=== PATIENT | male | born 1940 | race Caucasian/White ===

== ENCOUNTER → 2018-01-26 | Outpatient (CLI) | payer MEDICARE ==
[2018-01-26 16:36] LABS: Appearance,Urine Clear (Clear); Bilirubin,Urine Negative (Negative); Blood,Urine Negative (Negative); Color,Urine Light Yellow; Glucose,Urine (UA) Negative (Negative); Ketones,Urine Negative (Negative); Leukocyte Esterase,Urine Negative (Negative); Nitrite,Urine Negative (Negative); PH, Urine 6.5 (5.0-8.0); Protein,Urine Negative (Negative); Specific Gravity,Urine 1.008 (1.001-1.035); Urobilinogen,Urine <2.0 mg/dL (<2.0)
[2018-01-26 16:39] LABS: HCT 41.7 % (39.0-53.0); HGB 14.2 gm/dL (13.0-17.5); MCH 30.7 pg (25.0-35.0); MCV 90.3 fL (80.0-100.0); Mean Platelet Volume 6.4; Platelet Count 236 k/uL (150-450); RBC 4.61 m/uL (4.30-5.90); RDW 13.1 % (11.5-15.5); WBC 6.5 k/uL (3.8-10.6)
[2018-01-26 16:41] LABS: Calcium 9.7 mg/dL (8.4-10.2); Potassium 4.4 mmol/L (3.5-5.1)
[2018-01-26 16:44] LABS: Creatinine,Urine Random 59.8 mg/dL
== END | disposition home or self-care (01) ==
LOC: LABWHC1 15:55
PROVIDERS: ATTEND Nurse Practitioner Family
DX: N39.0 Urinary tract infection, site not specified (principal); R80.9 Proteinuria, unspecified; N18.3 Chronic kidney disease, stage 3 (moderate); D63.1 Anemia in chronic kidney disease
CPT/HCPCS: 36415; 80048; 81003; 82570; 84156; 85027

== ENCOUNTER → 2021-08-17 | Outpatient (CLI) | payer MEDICARE ==
--- NOTE | 2021-08-17 12:31 | XR ---
EXAMINATION TYPE: XR chest 2V DATE OF EXAM: 08/17/2021 COMPARISON: Chest x-ray January 15, 2016 HISTORY: History of open heart surgery with cough and congestion. TECHNIQUE: Frontal and lateral views of the chest are obtained. FINDINGS: Overlying sternal wires and mediastinal clips redemonstrated. There is no suspicious new f ocal air space opacity, pleural effusion, or pneumothorax seen. Chronic emphysematous changes are tho ught present on lateral view. The cardiac silhouette size is stable and within normal limits. The osseous structures are intact. IMPRESSION: Chronic changes without acute pulmonary process.
== END | disposition home or self-care (01) ==
LOC: RADXRMAIN 12:04
PROVIDERS: ATTEND Internal Medicine
DX: R05.9 Cough, unspecified (principal); R09.89 Other specified symptoms and signs involving the circulatory and respiratory systems; Z98.890 Other specified postprocedural states
CPT/HCPCS: 71046

== ENCOUNTER → 2021-10-25 | Outpatient (CLI) | payer MEDICARE | END | disposition home or self-care (01) | LOC: LABPAT 15:15 | PROVIDERS: ATTEND Orthopaedic Surgery | DX: Z01.812 Encounter for preprocedural laboratory examination (principal); Z22.322 Carrier or suspected carrier of Methicillin resistant Staphylococcus aureus; M17.11 Unilateral primary osteoarthritis, right knee | CPT/HCPCS: 87070 ==

== ENCOUNTER 2021-11-13 08:25 | Day surgery (SDC) | payer MEDICARE ==
[2021-11-08 15:10] VITALS: BMI 28.1
--- NOTE | 2021-11-12 09:22 | HP ---
HISTORY AND PHYSICAL CHIEF COMPLAINT: Right knee pain. HISTORY OF PRESENT ILLNESS: The patient is a 81-year-old retired gentleman who presents with progressive right knee pain for the past several years. He notes swelling and stiffness. He has pain with weightbearing activities. He intermittently limps. He has tried medications for this in the past without much relief. PAST MEDICAL HISTORY: Significant for hyperlipidemia, hypertension, hypothyroidism, prostate cancer, coronary artery disease and osteoarthrosis. PAST SURGICAL HISTORY: Significant for left knee arthroscopy, left total knee arthroplasty, right knee arthroscopy, prostate surgery and coronary artery bypass grafting. CURRENT MEDICATIONS: Aspirin, Synthroid, Cozaar, Crestor, and Toprol. ALLERGIES: HE DENIES DRUG ALLERGIES. FAMILY HISTORY: Significant for heart disease and cancer. SOCIAL HISTORY: Negative for current tobacco or significant alcohol use. REVIEW OF SYSTEMS: Sixteen-point review of systems otherwise reviewed and is noncontributory. PHYSICAL EXAMINATION: On examination, the patient is approximately 5 feet 7 inches, 180 pounds of mesomorphic habitus. HEENT exam is nonfocal. Neck is supple. He has painless passive motion of the right hip. Straight-leg raise is negative. Active motion of right knee: Minus 10 to 120 degrees of flexion. He has a trace effusion. He is tender about the medial and lateral joint lines. Collaterals are stable, Dilip is negative. Isaias's is equivocal. He has genu varum alignment. His distal neurovascular exam appears intact in the right lower extremity. Weightbearing notch, lateral and Merchant views of the right knee obtained in the office show severe medial compartment and patellofemoral compartment osteoarthrosis with [id number] changes and subchondral sclerosis. IMPRESSION: Right knee severe medial and patellofemoral compartment osteoarthrosis. RECOMMENDATIONS: I talked to the patient at length regarding his condition along with treatment options. At this point he is quite symptomatic and limited because of pain related to his osteoarthrosis despite previous conservative measures. After thorough discussion, he opts to proceed with surgery. We will plan to proceed with right total knee arthroplasty. We will institute DVT prophylaxis postoperatively. Risks and benefits were discussed at length in layman's terms. MMODL / IJN: [id number] /
[~2021-11-13 08:25] MED LIST: ACETAMINOPHEN TAB 500 MG TAB PO PRN; LACTATED RINGERS 1,000 ML IV SCH; LIDOCAINE 1% (10MG/ML) FOR IV START INTRADERMA PRN; MELOXICAM 7.5 MG TAB PO PRN; ONDANSETRON 4 MG/2 ML VIAL IVP ONE; TRANEXAMIC ACID IN NACL,ISO-OS 1,000 MG in SALINE 1 100ML.BAG IVPB PRN
[2021-11-13] MEDS ORDERED: MIDAZOLAM 2 MG/2 ML VIAL IVP ONE (09:42)
[2021-11-13] MEDS ORDERED: fentaNYL (PF) 50 MCG/ML 2 ML AMP IVP ONE (09:44)
--- NOTE | 2021-11-13 10:22 | P.ANPRN ---
Procedure Note - Anesthesia - Nerve Block Performed Right Adductor Canal Infusion Time Out Performed: Yes (942) Date of Procedure: 11/13/21 Procedure Start Time: 09:43 Procedure Stop Time: 09:48 Location of Patient: PreOp Indication: Acute Post-Operative Pain, Requested by Surgeon Specifically requested for management of pain by : Austin Owusu Sedation Type: Sedate with meaningful contact maintained Preparation: Sterile Prep, Sterile Dressing Position: Supine Catheter Depth at Skin (cm): 8 Catheter: Indwelling Needle Types: Pajunk Needle Gauge: 18 Ultrasound used to visualize needle placement: Yes Ultrasound used to observe medication spread: Yes Injectate: 0.5% Ropivacaine (see comment for volume) (15cc + 5cc nacl pf) Blood Aspirated: No Pain Paresthesia on Injection Noted: No Resistance on Injection: Normal Image Stored and Saved: Yes Events: Uneventful and Well Tolerated
--- NOTE | 2021-11-13 10:23 | P.ANPRN ---
Procedure Note - Anesthesia - Nerve Block Performed Right iPack Single Time Out Performed: Yes (942) Date of Procedure: 11/13/21 Procedure Start Time: 09:49 Procedure Stop Time: 09:52 Location of Patient: PreOp Indication: Acute Post-Operative Pain, Requested by Surgeon Specifically requested for management of pain by DrLeonides: Austin Owusu Sedation Type: Sedate with meaningful contact maintained Preparation: Sterile Prep Position: Supine Catheter: None Needle Types: Pajunk Needle Gauge: 21 Ultrasound used to visualize needle placement: Yes Ultrasound used to observe medication spread: Yes Injectate: 0.5% Ropivacaine (see comment for volume) (15cc + 5cc nacl) Blood Aspirated: No Pain Paresthesia on Injection Noted: No Resistance on Injection: Normal Image Stored and Saved: Yes Events: Uneventful and Well Tolerated
[2021-11-13] MEDS ORDERED: PROPOFOL 10 MG/ML 20 ML VIAL IV ONE (10:25)
[2021-11-13] MEDS ORDERED: fentaNYL (PF) 50 MCG/ML 2 ML AMP ONE (10:25)
[2021-11-13] MEDS ORDERED: ePHEDrine 50 MG/ML 1 ML VIAL ONE (10:25)
[2021-11-13] MEDS ORDERED: SUCCINYLCHOLINE CHLORIDE 100 MG/5 ML SYR IV ONE (10:25)
[2021-11-13] MEDS ORDERED: LIDOCAINE 1% INJ 10MG/ML (20 ML MDV) ONE (10:25)
[2021-11-13] MEDS ORDERED: TRANEXAMIC ACID IN NACL,ISO-OS 1,000 MG/100 ML BAG ONE (10:25)
[2021-11-13] MEDS ORDERED: SODIUM CHLORIDE 0.9% (PF) 10 ML VIAL ONE (10:25)
[2021-11-13] MEDS ORDERED: ROPIVACAINE 5 MG/ML 30 ML VIAL ONE (10:25)
[2021-11-13] MEDS ORDERED: ceFAZolin 1,000 MG in SODIUM CHLORIDE 0.9% 1,000 ML IRRIGATION ONE (11:01)
[2021-11-13] MEDS ORDERED: LACTATED RINGERS 1,000 ML IV ONE (11:47)
[2021-11-13] MEDS ORDERED: NALOXONE 0.4 MG/ML 1 ML VIAL IV PRN (11:58)
[2021-11-13] MEDS ORDERED: HYDROcodone/APAP 5-325MG 1 EACH TAB PO PRN (11:58)
[2021-11-13] MEDS ORDERED: HYDROcodone/APAP 7.5-325MG 1 EACH TAB PO PRN (11:58)
[2021-11-13] MEDS ORDERED: HYDROmorphone 0.5 MG/0.5 ML SYRINGE IVP PRN (11:58)
--- NOTE | 2021-11-13 12:20 | P.OP ---
Date of Procedure: 11/13/21 Preoperative Diagnosis: Right knee severe tricompartmental osteoarthrosis Postoperative Diagnosis: Same Procedure(s) Performed: Right total knee arthroplastycementedcruciate retaining Implants: Depuy Attune size 6 cemented femoral component, size 6 cemented tibial component, 10 mm articular surface, 38 mm cemented patellar component. This is a cruciate retaining implant. Anesthesia: [facility] Surgeon: Austin Owusu Graphic Arts Technician #1: Andrey Gibbs Graphic Arts Technician #2: Shoaib Dewey Estimated Blood Loss (ml): 50 Pathology: other (Bone fragments) Condition: stable Disposition: PACU Indications for Procedure: Patient 81-year-old male who presents with progressive right knee pain secondary to osteoarthrosis by conservative measures. A discussion of the risks and benefits of operative intervention versus continued conservative measures made with patient. He opted to proceed with surgery. Operative risks to include infection, neurovascular injury, development of blood clots, component loosening /failure and possible need for subsequent procedures was discussed. Informed consent was obtained. Operative Findings: As below Description of Procedure: The patient was brought to the operating room, and after induction of spinal anesthesia the right lower extremity was prepped and draped in a normal fashion. The tourniquet was inflated to 270 mmHg. A longitudinal incision extending 3 finger breaths above the superior pole of the patella extending to the medial aspect the tibial tubercle was then made. The skin and subcutaneous tissues were divided sharply. Electrocautery was used for hemostasis. A medial parapatellar arthrotomy was then performed. The medial soft tissues to include the superficial and deep portions of the medial collateral ligament as well as the medial hamstring tendons were elevated subperiosteally. The proximal medial tibia osteophytes were carefully removed. The patella was everted. The knee was flexed. A portion of the retropatellar fat pad was excised sharply. The anterior cruciate ligament was sacrificed. A starting hole was made in the distal femur 1 cm anterior to the posterior cruciate origin. An intramedullary femoral guide was gently inserted planning on 5 valgus distal cut with 9 mm distal resection. The cutting block was pinned in place. The distal cut was then made. The posterior referencing sizing guide was utilized. 3 of external rotation was built into the system and verified off the trans- epicondylar axis and the posterior condyles. I felt size 6 was most appropriate. The cutting block was pinned in place. The anterior, posterior, and chamfer cuts were then made. The bone fragments were removed. A sulcus cut was then made with the appropriate guide. The trial size 6 femoral component was then placed and was fully seated. There was good anterior to posterior and medial to lateral fit. The distal peg holes were then drilled. The trial component was then removed. Attention was then paid towards preparing the proximal tibia. An extra medullary guide was utilized in line with the tibial shaft and second metatarsal distally. A 7 posterior slope was planned. I planned on 2 mm resection from the medial compartment. The cutting block was pinned in place. The proximal tibial cut was then made. The bone was removed in one fragment. The remnants of the medial and lateral menisci were excised the capsule junction with electrocautery. The tibia sized most appropriately at size 6. The posterior osteophytes off the distal femur were carefully removed with a curved osteotome. The trial tibial and femoral components were placed along with a 10 millimeters articular surface. I was able to obtain full flexion and extension with good stability with varus and valgus stress. After several flexion and extension cycles, the tibial rotation was marked with electrocautery in line with the medial one third of the tibial tubercle. At tention was then paid towards preparing the patella. A patella reamer was utilized taking this down to 14 mm of bone stock. A good flush cut was made. The patella sized most appropriately at 38 millimeters. The peg holes were then drilled. The trial component was placed. The knee was taken through a range of motion. I had good patellofemoral tracking with no hands technique. The trial components were then removed. The tibia was prepared in the appropriate rotation with appropriate drill and keel punch. The flexion and extension gaps were checked and felt to be symmetric. The bony surfaces were prepared with pulsatile lavage and dried. The tibial component was then cemented in place and was fully seated. Excess cement was removed. The femoral component was cemented in place and was fully seated. Again excess cement was removed. The trial 10 millimeters surface was then inserted in the knee was put in full extension. The patella component was cemented in place. After the cement had sufficiently hardened, the knee was again taken through a range of motion. Again there was good stability in flexion and extension with varus and valgus stress. The trial articular surface was then removed. The final articular surface was placed and was impacted. Care was taken to avoid any soft tissue interposition. Pulsatile lavage was again utilized. The tourniquet was def lated with approximately 60 minutes total tourniquet time. There was minimal drainage therefore a deep drain was not placed. The medial parapatellar arthrotomy was then closed with #2 Ethibond suture. The subcutaneous tissues were reapproximated interrupted 2-0 Vicryl sutures. The skin was reapproximated with 3-0 subarticular strata fix suture. Skin tape and adhesive was applied. A sterile dressing was applied. The patient was then awoken from sedation and transferred to recovery room in good condition. Blood loss was estimated at 50 milliliters. No complications were incurred. Sponge and needle counts were correct at the end the case. Gurinder SIDDIQI/Andrey SIDDIQI assisted during the major components this case to include exposure, bone resection, and implantation.
[2021-11-13 12:24] VITALS: TEMP 97
[2021-11-13] MEDS ORDERED: ROPIVACAINE 0.2%-NS ON-Q PUMP 1,090 MG, EMPTY PAIN BALL 1 EACH MISCELLANE PRN (12:29)
[2021-11-13] MEDS: HYDROmorphone 0.5 MG/0.5 ML SYRINGE IVP PRN ×2 (12:35→13:05)
--- NOTE | 2021-11-13 12:44 | XR ---
EXAMINATION TYPE: XR knee limited RT DATE OF EXAM: 11/13/2021 CLINICAL HISTORY: Right knee pain and arthritis status post total knee replacement. TECHNIQUE: Portable AP and crosstable lateral views of the right knee are obtained immediately posto peratively. COMPARISON: None FINDINGS: Metallic hardware from total right knee arthroplasty is seen and appears satisfactory in a lignment and position. There is evidence of recent surgery with diffuse subcutaneous gas and soft ti ssue swelling noted. Surgical clips from venous harvesting procedure are noted posterior medial aspec t. IMPRESSION: METALLIC HARDWARE FROM TOTAL RIGHT KNEE ARTHROPLASTY IS SATISFACTORY IN ALIGNMENT.
[2021-11-13] MEDS ORDERED: KETOROLAC 15 MG/ML 1 ML VIAL IVP ONE (13:05)
[2021-11-13] MEDS ORDERED: HYDROcodone/APAP 5-325MG 1 EACH TAB PO ONE (14:17)
[2021-11-13 14:59] VITALS: BP 133/75; PULSE 53; RESP 18
== END 2021-11-13 16:20 | disposition home health service (06) ==
LOC: OR 08:25 → 4SSUR 12:14 → OR 16:20
PROVIDERS: ATTEND Orthopaedic Surgery
DX: M17.11 Unilateral primary osteoarthritis, right knee (principal); E78.5 Hyperlipidemia, unspecified; I10 Essential (primary) hypertension; E03.9 Hypothyroidism, unspecified; I25.10 Atherosclerotic heart disease of native coronary artery without angina pectoris; Z85.46 Personal history of malignant neoplasm of prostate; Z96.652 Presence of left artificial knee joint; Z95.1 Presence of aortocoronary bypass graft; E55.9 Vitamin D deficiency, unspecified; Z98.890 Other specified postprocedural states; Z81.0 Family history of intellectual disabilities; F41.9 Anxiety disorder, unspecified; N40.0 Benign prostatic hyperplasia without lower urinary tract symptoms; I12.9 Hypertensive chronic kidney disease with stage 1 through stage 4 chronic kidney disease, or unspecified chronic kidney disease; N18.30 Chronic kidney disease, stage 3 unspecified; I25.2 Old myocardial infarction; Z87.891 Personal history of nicotine dependence; Z98.49 Cataract extraction status, unspecified eye; Z90.79 Acquired absence of other genital organ(s); Z95.5 Presence of coronary angioplasty implant and graft; Z79.82 Long term (current) use of aspirin; Z79.890 Hormone replacement therapy; Z79.899 Other long term (current) drug therapy
CPT/HCPCS: 97110; 97161; 64999; 64448; 76942; 88305; 88311; 73560; 27447; C1713 ×2; C1776; J2250; J0690 ×2; J2405; J2001; J3010; J2795 ×2; J1885; J0330; J2704; J1170

== ENCOUNTER → 2023-02-18 | Outpatient (CLI) | payer MEDICARE ==
--- NOTE | 2023-02-18 20:57 | MR ---
MRI CERVICAL SPINE: CLINICAL HISTORY: Neck pain for 6 months spondylosis without myelopathy or radiculopathy. TECHNIQUE: Multiplanar, multisequence imaging of the cervical spine is performed without IV contrast. COMPARISON: None. FINDINGS: Coronal images show levoconvex scoliosis centered in the upper thoracic spine Sagittal imag es of the cervical spine show the craniocervical junction to appear within normal limits. The cervic al and upper thoracic spinal cord is normal in caliber and signal. Alignment satisfactory and sagitta l images. The vertebral body heights are normal. There is marked disc space narrowing with some ossi fic fusion involving the C3-C4 and C4-C5 vertebra. Mild to moderate disc space narrowing and anterior spurring C5-C6 level. Moderate disc space narrowing and spurring with heterogeneous Modic type II en dplate changes at C6-C7 level. Marked disc space narrowing at T1-T2 level. Tiny posterior disc hernia tions efface the anterior thecal sac at T2-T3 and T3-T4 levels sagittal image 9. Axial images at C2-C3 level show uncovertebral facet degenerative changes causing mild to moderate le ft greater than right bilateral neural foraminal narrowing. Axial images at C3-C4 level show uncovertebral facet degenerative changes bilaterally causing mild ri ght-sided neural foraminal narrowing. Axial images at C4-C5 levels show posterior bony projection effacing the anterior thecal sac nearly u p to ventral surface of spinal cord and causing mild bilateral neural foraminal narrowing. Axial images at C5-C6 levels show broad-based posterior disc protrusion with right paracentral/forami nal component effacing the anterior thecal sac and causing asymmetric mild to moderate right-sided ne ural foraminal narrowing. Axial images at C6-C7 levels with broad-based posterior disc protrusion effacing anterior thecal sac, patent bilateral neural foramina. Axial images at C7-T1 level appear within normal limits. IMPRESSION: Scoliosis with multilevel degenerative changes in the cervical spine as detailed above.
== END | disposition home or self-care (01) ==
LOC: RADMRIMAIN 12:30
PROVIDERS: ATTEND Orthopaedic Surgery
DX: M47.812 Spondylosis without myelopathy or radiculopathy, cervical region (principal); M50.321 Other cervical disc degeneration at C4-C5 level; M99.71 Connective tissue and disc stenosis of intervertebral foramina of cervical region
CPT/HCPCS: 72141

== ENCOUNTER 2023-07-25 15:38 | Inpatient (IN) | payer MEDICARE ==
--- NOTE | 2023-07-25 16:16 | ED ---
General Adult HPI - General Source: patient, family, RN notes reviewed Mode of arrival: ambulatory Limitations: no limitations <Myranda Neves - Last Filed: 07/25/23 16:15> <Oscar Hall - Last Filed: 08/11/23 05:37> - General Chief complaint: Shortness of Breath Stated complaint: Abn EKG,SOB/sent by pcp - History of Present Illness Initial comments: Patient is an 83-year-old male presenting to the ER with chief complaint shortness of breath. Patient was seen and office by Dr. saucedo and was found to be in atrial flutter. Patient follows up Dr. Montalvo. Patient denies any current chest pain/palpitations does endorse shortness of breath. (Myranda Neves) - Related Data Home Medications Medication Instructions Recorded Confirmed Levothyroxine Sodium [Synthroid] 125 mcg PO DAILY 07/11/14 07/25/23 Losartan [Cozaar] 25 mg PO DAILY 01/08/16 07/25/23 Cholecalciferol [Vitamin D3 (25 50 mcg PO DAILY 07/10/16 07/25/23 Mcg = 1000 Iu)] Aspirin [Adult Low Dose Aspirin EC] 81 mg PO DAILY 08/20/16 07/25/23 Multivitamins, Thera [Multivitamin 1 tab PO DAILY 11/08/21 07/25/23 (formulary)] Rosuvastatin Calcium [Crestor] 40 mg PO DAILY 11/08/21 07/25/23 Cyclobenzaprine [Flexeril] 5 mg PO TID PRN 07/25/23 07/25/23 Esomeprazole Magnesium [NexIUM 20 mg PO DAILY 07/25/23 07/25/23 24Hr] Zolpidem Tartrate [Ambien] 5 mg PO HS PRN 07/25/23 07/25/23 Previous Rx's Medication Instructions Recorded Apixaban [Eliquis] 5 mg PO BID 30 Days #60 tab 07/29/23 Allergies Allergy/AdvReac Type Severity Reaction Status Date / Time No Known Allergies Allergy Verified 07/25/23 22:38 Review of Systems ROS Other: All systems not noted in ROS Statement are negative. <Myranda Neves - Last Filed: 07/25/23 16:15> ROS Other: All systems not noted in ROS Statement are negative. Constitutional: Reports: weakness. Denies: fever, chills Respiratory: Reports: dyspnea. Denies: cough, wheezes Cardiovascular: Denies: chest pain, palpitations, edema, syncope Gastrointestinal: Denies: abdominal pain, vomiting, diarrhea Genitourinary: Denies: dysuria, hematuria Musculoskeletal: Denies: back pain Skin: Denies: rash Neurological: Denies: headache, weakness, numbness <RobertclydeOscar - Last Filed: 08/11/23 05:37> ROS Statement: Those systems with pertinent positive or pertinent negative responses have been documented in the HPI. Past Medical History Past Medical History: Cancer, CVA/TIA, Hyperlipidemia, Myocardial Infarction ([place]), Prostate Disorder, Syncope, Thyroid Disorder Additional Past Medical History / Comment(s): PROSTATE CANCER, TIA/SYNCOPY, STATES NO RESIDUAL EFFECTS FROM TIA Last Myocardial Infarction Date:: 2004 History of Any Multi-Drug Resistant Organisms: None Reported Past Surgical History: Coronary Bypass/CABG, Heart Catheterization With Stent Additional Past Surgical History / Comment(s): TOTAL LEFT KNEE, RIGHT and left KNEE ARTHROSCOPIC, LEFT and right CATARACT, QUAD BYPASS 2004 Past Anesthesia/Blood Transfusion Reactions: Previous Problems w/ Anesthesia Additional Past Anesthesia/Blood Transfusion Reaction / Comment(s): TROUBLE EATING AND DIARRHEA POST SURGICAL 06/2016, STATES WEIGHT LOSS Date of Last Stent Placement:: 2004 Past Psychological History: Anxiety Past Alcohol Use History: Occasional - Past Family History Daughter(s) Family Medical History: Cancer Additional Family Medical History / Comment(s): Melanoma. Mother Family Medical History: Cancer <Myranda Neves - Last Filed: 07/25/23 16:15> General Exam Limitations: no limitations <Myranda Neves - Last Filed: 07/25/23 16:15> Limitations: no limitations General appearance: alert, in no apparent distress Head exam: Present: atraumatic, normocephalic Eye exam: Present: normal appearance ENT exam: Present: normal exam Neck exam: Present: normal inspection, full ROM Respiratory exam: Present: normal lung sounds bilaterally. Absent: respiratory distress, wheezes, rales, rhonchi, stridor, accessory muscle use Cardiovascular Exam: Present: bradycardia, irregular rhythm, normal heart sounds. Absent: systolic murmur, diastolic murmur, rubs, gallop GI/Abdominal exam: Present: soft. Absent: distended, tenderness, guarding, rebound, rigid, mass Extremities exam: Present: normal inspection, normal capillary refill. Absent: pedal edema, calf tenderness Back exam: Present: normal inspection. Absent: CVA tenderness (R), CVA tenderness (L) Neurological exam: Present: alert Skin exam: Present: warm, dry, intact, normal color. Absent: rash <Oscar Hall - Last Filed: 08/11/23 05:37> - General Exam Comments Initial Comments: Visual Physical Exam Vital signs reviewed General: Well-appearing, nontoxic, no acute distress. Head: Normocephalic, atraumatic Eyes: PERRLA, EOMI ENT: Airway patent Chest: Nonlabored breathing Skin: No visual rash, normal skin tone Neuro: Alert and oriented 3 Musculoskeletal: No gross abnormalities (Myranda Neves) Course Vital Signs 07/25/23 07/26/23 07/26/23 16:05 02:31 07:11 Temperature 98.1 F Pulse Rate 39 L 47 L 45 L Respiratory 20 19 18 Rate Blood Pressure 159/95 169/96 139/93 O2 Sat by Pulse 96 95 96 Oximetry 07/26/23 07/26/23 07/26/23 08:00 09:00 10:00 Temperature Pulse Rate 48 L 80 81 Respiratory 17 18 17 Rate Blood Pressure 139/93 139/93 139/93 O2 Sat by Pulse 96 96 96 Oximetry 07/26/23 07/26/23 07/26/23 11:00 12:03 14:30 Temperature 98.4 F 98.0 F Pulse Rate 47 L 43 L 48 L Respiratory 16 18 17 Rate Blood Pressure 131/71 154/78 143/74 O2 Sat by Pulse 100 97 96 Oximetry 07/26/23 07/26/23 07/26/23 17:45 19:22 19:58 Temperature 97.8 F 98.2 F Pulse Rate 47 L 51 L Respiratory 18 16 Rate Blood Pressure 170/87 160/83 O2 Sat by Pulse 95 97 Oximetry 07/26/23 07/27/23 07/27/23 21:04 00:27 04:36 Temperature Pulse Rate 49 L 53 L 48 L Respiratory 16 16 16 Rate Blood Pressure 126/81 147/85 O2 Sat by Pulse 96 97 95 Oximetry 07/27/23 07/27/23 07/27/23 05:00 08:57 11:42 Temperature 98.6 F Pulse Rate 60 61 Respiratory 18 18 Rate Blood Pressure 151/75 153/82 125/53 O2 Sat by Pulse 96 95 Oximetry 07/27/23 14:06 Temperature 98.2 F Pulse Rate 65 Respiratory 18 Rate Blood Pressure 137/81 O2 Sat by Pulse 94 L Oximetry Medical Decision Making <Myranda Neves - Last Filed: 07/25/23 16:15> - Lab Data Result diagrams: 07/29/23 09:39 07/29/23 09:39 <RobertOscar tang - Last Filed: 08/11/23 05:37> - Medical Decision Making I performed the quick note portion of the exam. Electronically signed by Myranda Neves PA-C (Myranda Neves) The patient had chest x-ray which I interpreted as negative for acute infiltrate, cardiomegaly, congestive heart failure Was pt. sent in by a medical professional or institution ([facility], [employer], urgent care, hospital, or fci...) When possible be specific @ -Yes the patient is sent here from primary physician's office for concerns about ECG change Did you speak to anyone other than the patient for history (EMS, parent, family, police, friend...)? What history was obtained from this source @ -[No] Did you review nursing and triage notes (agree or disagree)? Why? @ -[I reviewed and agree with nursing and triage notes] Were old charts reviewed (outside hosp., previous admission, EMS record, old EKG, old radiological studies, urgent care reports/EKG's, fci records)? Report findings @ -[No old charts were reviewed] Differential Diagnosis (chest pain, altered mental status, abdominal pain women, abdominal pain men, vaginal bleeding, weakness, fever, dyspnea, syncope, he adache, dizziness, GI bleed, back pain, seizure, CVA, palpatations, mental health, musculoskeletal)? @ - Differential Dyspnea: Coronary syndrome, arrhythmia, tamponade, asthma, COPD, pulmonary embolism, pneumonia, pneumothorax, pulmonary effusion, anaphylaxis, diabetic ketoacidosis, flailed chest, pulmonary contusion, diaphragmatic rupture, anemia, neuromuscular, this is not meant to be an all-inclusive list. EKG interpreted by me (3pts min.). @ -[I interpreted As above] X-rays interpreted by me (1pt min.). @ -[I interpreted as above CT interpreted by me (1pt min.). @ -[None done] U/S interpreted by me (1pt. min.). @ -[None done] What testing was considered but not performed or refused? (CT, X-rays, U/S, labs)? Why? @ -[None] What meds were considered but not given or refused? Why? @ -[None] Did you discuss the management of the patient with other professionals (professionals i.e. , PA, [employer] PL[employer]ER, lab, RT, psych nurse, hospital social worker, convex grinder operator, teacher, chief data officer, casework manager)? Give summary @ -[Case discussed with admitting physician and treatment recommendations incorporated Was smoking cessation discussed for >3mins.? @ -[No] Was critical care preformed (if so, how long)? @ -[No] Were there social determinants of health that impacted care today? How? (Homelessness, low income, unemployed, alcoholism, drug addiction, transportation, low edu. Level, literacy, decrease access to med. care, long term, r ehab)? @ -[No] Was there de-escalation of care discussed even if they declined (Discuss DNR or withdrawal of care, Hospice)? DNR status @ -[No] What co-morbidities impacted this encounter? (DM, HTN, Smoking, COPD, CAD, Cance r, CVA, ARF, Chemo, Hep., AIDS, mental health diagnosis, sleep apnea, morbid obesity)? @ -[None] Was patient admitted / discharged? Hospital course, mention meds given and route, prescriptions, significant lab abnormalities, going to OR and other pertinent info. @ -[The patient will be admitted to have serial cardiac enzymes, telemetry jeffrey toring, cardiology consultation Undiagnosed new problem with uncertain prognosis? @ -[No] Drug Therapy requiring intensive monitoring for toxicity (Heparin, Nitro, Insulin, Cardizem)? @ -[No] Were any procedures done? @ -[No] Diagnosis/symptom? @ -New-onset atrial flutter Acute, or Chronic, or Acute on Chronic? @ -[Acute Uncomplicated (without systemic symptoms) or Complicated (systemic symptoms)? @ -[Complicated by dyspnea and general weakness Side effects of treatment? @ -[No] Exacerbation, Progression, or Severe Exacerbation? @ -[No] Poses a threat to life or bodily function? How? (Chest pain, USA, DC, pneumonia, PE, COPD, DKA, ARF, appy, cholecystitis, CVA, Diverticulitis, Homicidal, Suicidal, threat to staff... and all critical care pts) @ -[No] (Oscar Hall) - Lab Data Lab Results 07/25/23 07/25/23 07/25/23 Range/Units 16:12 16:12 16:12 WBC 7.1 (3.8-10.6) k/uL RBC 4.30 (4.30-5.90) m/uL Hgb 14.0 (13.0-17.5) gm/dL Hct 40.0 (39.0-53.0) % MCV 92.8 (80.0-100.0) fL MCH 32.5 (25.0-35.0) pg MCHC 35.0 (31.0-37.0) g/dL RDW 12.8 (11.5-15.5) % Plt Count 198 (150-450) k/uL MPV 7.4 Neutrophils % (Manual) 60 % Lymphocytes % (Manual) 26 % Monocytes % (Manual) 13 % Eosinophils % (Manual) 2 % Basophils % (Manual) 1 % Neutrophils # (Manual) 4.26 (1.3-7.7) k/uL Lymphocytes # (Manual) 1.85 (1.0-4.8) k/uL Monocytes # (Manual) 0.92 (0-1.0) k/uL Eosinophils # (Manual) 0.14 (0-0.7) k/uL Basophils # (Manual) 0.07 (0-0.2) k/uL Nucleated RBCs 0 (0-0) /100 WBC Manual Slide Review Performed RBC Morphology Normal PT 11.2 (10.0-12.5) sec INR 1.0 (<1.2) APTT 24.9 (22.0-30.0) sec Sodium 138 (137-145) mmol/L Potassium 4.4 (3.5-5.1) mmol/L Chloride 103 (98-107) mmol/L Carbon Dioxide 24 (22-30) mmol/L Anion Gap 11 mmol/L BUN 29 H (9-20) mg/dL Creatinine 1.17 (0.66-1.25) mg/dL Est GFR (CKD-EPI)AfAm 67 (>60 ml/min/1.73 sqM) Est GFR (CKD-EPI)NonAf 58 (>60 ml/min/1.73 sqM) Glucose 90 (74-99) mg/dL Calcium 9.6 (8.4-10.2) mg/dL Total Bilirubin 0.7 (0.2-1.3) mg/dL AST 98 H (17-59) U/L ALT 96 H (4-49) U/L Alkaline Phosphatase 87 (38-126) U/L Troponin I (0.000-0.034) ng/mL NT-Pro-B Natriuret Pep pg/mL Total Protein 7.7 (6.3-8.2) g/dL Albumin 4.6 (3.5-5.0) g/dL 07/25/23 07/25/23 07/25/23 Range/Units 16:12 22:33 22:33 WBC (3.8-10.6) k/uL RBC (4.30-5.90) m/uL Hgb (13.0-17.5) gm/dL Hct (39.0-53.0) % MCV (80.0-100.0) fL MCH (25.0-35.0) pg MCHC (31.0-37.0) g/dL RDW (11.5-15.5) % Plt Count (150-450) k/uL MPV Neutrophils % (Manual) % Lymphocytes % (Manual) % Monocytes % (Manual) % Eosinophils % (Manual) % Basophils % (Manual) % Neutrophils # (Manual) (1.3-7.7) k/uL Lymphocytes # (Manual) (1.0-4.8) k/uL Monocytes # (Manual) (0-1.0) k/uL Eosinophils # (Manual) (0-0.7) k/uL Basophils # (Manual) (0-0.2) k/uL Nucleated RBCs (0-0) /100 WBC Manual Slide Review RBC Morphology PT (10.0-12.5) sec INR (<1.2) APTT (22.0-30.0) sec Sodium (137-145) mmol/L Potassium (3.5-5.1) mmol/L Chloride (98-107) mmol/L Carbon Dioxide (22-30) mmol/L Anion Gap mmol/L BUN (9-20) mg/dL Creatinine (0.66-1.25) mg/dL Est GFR (CKD-EPI)AfAm (>60 ml/min/1.73 sqM) Est GFR (CKD-EPI)NonAf (>60 ml/min/1.73 sqM) Glucose (74-99) mg/dL Calcium (8.4-10.2) mg/dL Total Bilirubin (0.2-1.3) mg/dL AST (17-59) U/L ALT (4-49) U/L Alkaline Phosphatase (38-126) U/L Troponin I 0.028 0.016 (0.000-0.034) ng/mL NT-Pro-B Natriuret Pep 4350 pg/mL Total Protein (6.3-8.2) g/dL Albumin (3.5-5.0) g/dL Disposition <Myranda Neves - Last Filed: 07/25/23 16:15> <Oscar Hall - Last Filed: 08/11/23 05:37> Clinical Impression: Atrial flutter Disposition: ADMITTED IP TO THIS HOSP Condition: Stable
[2023-07-25 16:53] LABS: Partial Thromboplastin Time 24.9 sec (22.0-30.0); Prothrombin Time 11.2 sec (10.0-12.5)
[2023-07-25 16:55] LABS: MCH 32.5 pg (25.0-35.0); MCV 92.8 fL (80.0-100.0); Mean Platelet Volume 7.4; Platelet Count 198 k/uL (150-450); RDW 12.8 % (11.5-15.5); WBC 7.1 k/uL (3.8-10.6)
[2023-07-25 16:57] LABS: ALT 96 U/L (4-49); AST 98 U/L (17-59); African American GFR (CKD) 67 (>60 ml/min/1.73 sqM); Albumin 4.6 g/dL (3.5-5.0); Alkaline Phosphatase 87 U/L (38-126); Anion Gap 11 mmol/L; Blood Urea Nitrogen 29 mg/dL (9-20); Calcium 9.6 mg/dL (8.4-10.2); Carbon Dioxide 24 mmol/L (22-30); Chloride 103 mmol/L (98-107); Glucose 90 mg/dL (74-99); Non-African American GFR(CKD) 58 (>60 ml/min/1.73 sqM); Potassium 4.4 mmol/L (3.5-5.1); Sodium 138 mmol/L (137-145); Total Bilirubin 0.7 mg/dL (0.2-1.3); Total Protein 7.7 g/dL (6.3-8.2)
[2023-07-25 18:36] LABS: Basophils # (M) 0.07 k/uL (0-0.2); Eosinophils # (M) 0.14 k/uL (0-0.7); Lymphocytes # (M) 1.85 k/uL (1.0-4.8); Monocytes # (M) 0.92 k/uL (0-1.0); Neutrophils # (M) 4.26 k/uL (1.3-7.7); Neutrophils % (M) 60 %; Nucleated Red Blood Cells 0 /100 WBC (0-0); RBC Morphology Normal; Total Cells Counted 200
--- NOTE | 2023-07-25 18:45 | XR ---
EXAMINATION TYPE: XR chest 2V DATE OF EXAM: 07/25/2023 COMPARISON: 08/17/2021 INDICATION: Difficulty breathing TECHNIQUE: Frontal and lateral views of the chest are obtained. FINDINGS: The heart size is normal. The pulmonary vasculature is normal. There may be some minimal right pleural effusion. Lungs otherwise appear clear hyperinflation and fla ttening of the diaphragms can be compatible with COPD. Sternotomy wires are present from prior CABG.. IMPRESSION: 1. Small right pleural effusion. 2. COPD
[2023-07-25] MEDS ORDERED: HEPARIN SODIUM 1,000 UN/ML (10ML VL) IV ONE (23:06)
[2023-07-25] MEDS ORDERED: NITROGLYCERIN SL TABS 0.4 MG TAB SUBLINGUAL PRN (23:06)
[2023-07-25] MEDS ORDERED: HEPARIN SOD,PORK IN 0.45% NACL 25,000 UNIT in 0.45% NACL 1 250ML.BAG IV SCH (23:15)
[2023-07-26] MEDS ORDERED: ASPIRIN 325 MG TAB PO SCH (09:00)
[2023-07-26] MEDS ORDERED: CYCLOBENZAPRINE 5 MG TAB PO PRN (09:01)
[2023-07-26] MEDS ORDERED: ZOLPIDEM 5 MG TAB PO PRN (09:01)
[2023-07-26] MEDS: LEVOTHYROXINE 125 MCG TAB PO SCH (09:22)
--- NOTE | 2023-07-26 09:35 | P.HPIM ---
History of Present Illness H&P Date: 07/26/23 Karime Kam, is an 83-year-old male who presented to [facility] emergency room with a chief complaint of worsening shortness of breath, patient states that his symptoms started 2 weeks prior to presentation, and has been progressing, he was seen in the office prior to coming to emergency room, EKG was done in the office and revealed evidence of atrial fibrillation with slow ventricular response rate 39. He was evaluated in the emergency room vital examination on presentation revealed a temperature of 98.1 pulse 39 respiration 20 blood pressure 159/95 pulse ox 96% on room air Laboratory data revealed a white blood count of 7.1 hemoglobin 14.0 platelet count 198 BUN 29 creatinine 1.17 AST 98 ALT 96 alkaline phosphatase 87 troponin 0.028 BNP 4350 Testing in the emergency room revealed chest x-ray revealed small right pleural effusion and evidence of COPD, EKG done in the office prior to presentation to emergency room, revealed atrial fibrillation with slow heart rate of 39 Patient was admitted to medical floor for further evaluation and treatment Past medical history is significant for history of hypertension, history of hyperlipidemia, history of hypothyroidism, history of coronary artery disease with history of coronary artery bypass graft surgery in 2004, history of TIA, history of prostate cancer, history of syncope, history of osteoarthritis was total left knee arthroplasty On review of systems patient is complaining of shortness of breath with activity otherwise he denies any complaints there is no fever or chills no headache or dizziness no chest pain no palpitation no cough no nausea or vomiting no abdominal pain no diarrhea no blood in the stools no burning with urination no frequency or urgency and no hematuria. Past Medical History Past Medical History: Cancer, CVA/TIA, Hyperlipidemia, Myocardial Infarction ([place]), Prostate Disorder, Syncope, Thyroid Disorder Additional Past Medical History / Comment(s): PROSTATE CANCER, TIA/SYNCOPY, STATES NO RESIDUAL EFFECTS FROM TIA Last Myocardial Infarction Date:: 2004 History of Any Multi-Drug Resistant Organisms: None Reported Past Surgical History: Coronary Bypass/CABG, Heart Catheterization With Stent Additional Past Surgical History / Comment(s): TOTAL LEFT KNEE, RIGHT and left KNEE ARTHROSCOPIC, LEFT and right CATARACT, QUAD BYPASS 2004 Past Anesthesia/Blood Transfusion Reactions: Previous Problems w/ Anesthesia Additional Past Anesthesia/Blood Transfusion Reaction / Comment(s): TROUBLE EATING AND DIARRHEA POST SURGICAL 06/2016, STATES WEIGHT LOSS Date of Last Stent Placement:: 2004 Past Psychological History: Anxiety Past Alcohol Use History: Occasional - Past Family History Daughter(s) Family Medical History: Cancer Additional Family Medical History / Comment(s): Melanoma. Mother Family Medical History: Cancer Medications and Allergies Home Medications Medication Instructions Recorded Confirmed Type Levothyroxine Sodium [Synthroid] 125 mcg PO DAILY 07/11/14 07/25/23 History Losartan [Cozaar] 25 mg PO DAILY 01/08/16 07/25/23 History Cholecalciferol [Vitamin D3] 50 mcg PO DAILY 07/10/16 07/25/23 History Aspirin [Adult Low Dose Aspirin EC] 81 mg PO DAILY 08/20/16 07/25/23 History Multivitamins, Thera [Multivitamin 1 tab PO DAILY 11/08/21 07/25/23 History (formulary)] Rosuvastatin Calcium [Crestor] 40 mg PO DAILY 11/08/21 07/25/23 History Metoprolol Succinate [Toprol XL] 50 mg PO DAILY 11/13/21 07/25/23 History Cyclobenzaprine [Flexeril] 5 mg PO TID PRN 07/25/23 07/25/23 History Esomeprazole Magnesium [NexIUM 20 mg PO DAILY 07/25/23 07/25/23 History 24Hr] Zolpidem Tartrate [Ambien] 5 mg PO HS PRN 07/25/23 07/25/23 History Allergies Allergy/AdvReac Type Severity Reaction Status Date / Time No Known Allergies Allergy Verified 07/25/23 22:38 Physical Exam Vitals: Vital Signs Temp Pulse Resp BP Pulse Ox 07/26/23 08:00 48 L 17 139/93 96 07/26/23 07:11 45 L 18 139/93 96 07/26/23 02:31 47 L 19 169/96 95 07/25/23 16:05 98.1 F 39 L 20 159/95 96 Intake and Output 07/25/23 07/26/23 07/26/23 22:59 06:59 14:59 Other: Weight 81.647 kg In general patient is alert and oriented x 3 in no distress HEENT head normocephalic and atraumatic Neck is supple no JVD no goiter no lymphadenopathy no carotid bruit Chest examination is clear to auscultation no crackles no wheezing Cardiac exam reveals regular heart sounds S1 and S2 no gallops no murmurs Abdomen is soft nontender no organomegaly with normal bowel sounds Extremity exam reveals no edema no cyanosis or clubbing Neurological examination reveals no gross focal deficits Results CBC & Chem 7: 07/25/23 16:12 07/25/23 16:12 Labs: Abnormal Lab Results - Last 24 Hours (Table) 07/25/23 Range/Units 16:12 BUN 29 H (9-20) mg/dL AST 98 H (17-59) U/L ALT 96 H (4-49) U/L Assessment and Plan Plan: Atrial fibrillation with slow ventricular response, patient was started on IV heparin, beta antolin was held Shortness of breath Underlying history of coronary artery disease with history of coronary artery bypass graft surgery in 2004 Elevated liver enzymes AST and ALT, will hold statin at this time and monitor closely Underlying history of hypertension Underlying history of hyperlipidemia Underlying history of hypothyroidism, will check TSH Underlying history of osteoarthritis Previous history of prostate cancer At this time patient will be admitted to telemetry He was started on IV heparin in the emergency room Metoprolol is on hold at this time Cardiology consultation was requested Will follow closely
--- NOTE | 2023-07-26 14:56 | P.CRDCN ---
History of Present Illness Consult date: 07/26/23 History of present illness: HISTORY OF PRESENTING ILLNESS 83-year-old known to Dr. Montalvo presented to the hospital because of 2 weeks of worsening shortness of breath. On admission his ECG showed atrial flutter with a heart rate of 39. At the time of my evaluation patient's heart rate is in 70s with underlying atrial flutter. Patient reports prior history of CAD status post CABG in 2004. He has not had any heart cath since. On admission blood pressure 150 oh , heart rate 60s to 70s, hemoglobin 14, WBC 7, BUN 29, creatinine 1.17, troponin 4 are negative, BNP 4000. TSH is normal. Chest x-ray does not show any signs of pulmonary congestion REVIEW OF SYSTEMS 14 point review of system is negative except what is mentioned above in HPI. PHYSICAL EXAMINATION Vital signs reviewed. Head: Normocephalic. Eyes: Sclerae nonicteric. Neck: Brisk carotid upstroke, no jugular venous distention. Lungs: Clear to auscultation. Heart: Irregularly irregular, S1-S2, no S3, no murmur or rub. Abdomen: Soft nontender, positive bowel sounds no organomegaly. Extremities: No edema, intact distal pulses. Neuro: Alert, oritented, no focal deficits ASSESSMENT New-onset atrial flutter. [id number] score 4, age, HTN, CAD Slow ventricular response, average heart rate around 60s Essential hypertension Shortness of breath and fatigue due to atrial flutter PLAN Start low-dose metoprolol 12.5 mg twice a day. If Heart rate <50s, discontinue. Discontinue IV heparin drip Start Eliquis 5 mg twice a day Plan for JAYNE cardioversion on Friday. I believe patient's heart rate would improve after getting cardioverted. Patient is having a great related AV conduction fatigue which is causing his heart rate go down. get echocardiogram Past Medical History Past Medical History: Cancer, CVA/TIA, Hyperlipidemia, Myocardial Infarction ([place]), Prostate Disorder, Syncope, Thyroid Disorder Additional Past Medical History / Comment(s): PROSTATE CANCER, TIA/SYNCOPY, STATES NO RESIDUAL EFFECTS FROM TIA Last Myocardial Infarction Date:: 2004 History of Any Multi-Drug Resistant Organisms: None Reported Past Surgical History: Coronary Bypass/CABG, Heart Catheterization With Stent Additional Past Surgical History / Comment(s): TOTAL LEFT KNEE, RIGHT and left KNEE ARTHROSCOPIC, LEFT and right CATARACT, QUAD BYPASS 2004 Past Anesthesia/Blood Transfusion Reactions: Previous Problems w/ Anesthesia Additional Past Anesthesia/Blood Transfusion Reaction / Comment(s): TROUBLE EATING AND DIARRHEA POST SURGICAL 06/2016, STATES WEIGHT LOSS Date of Last Stent Placement:: 2004 Past Psychological History: Anxiety Past Alcohol Use History: Occasional - Past Family History Daughter(s) Family Medical History: Cancer Additional Family Medical History / Comment(s): Melanoma. Mother Family Medical History: Cancer Medications and Allergies Home Medications Medication Instructions Recorded Confirmed Type Levothyroxine Sodium [Synthroid] 125 mcg PO DAILY 07/11/14 07/25/23 History Losartan [Cozaar] 25 mg PO DAILY 01/08/16 07/25/23 History Cholecalciferol [Vitamin D3] 50 mcg PO DAILY 07/10/16 07/25/23 History Aspirin [Adult Low Dose Aspirin EC] 81 mg PO DAILY 08/20/16 07/25/23 History Multivitamins, Thera [Multivitamin 1 tab PO DAILY 11/08/21 07/25/23 History (formulary)] Rosuvastatin Calcium [Crestor] 40 mg PO DAILY 11/08/21 07/25/23 History Metoprolol Succinate [Toprol XL] 50 mg PO DAILY 11/13/21 07/25/23 History Cyclobenzaprine [Flexeril] 5 mg PO TID PRN 07/25/23 07/25/23 History Esomeprazole Magnesium [NexIUM 20 mg PO DAILY 07/25/23 07/25/23 History 24Hr] Zolpidem Tartrate [Ambien] 5 mg PO HS PRN 07/25/23 07/25/23 History Allergies Allergy/AdvReac Type Severity Reaction Status Date / Time No Known Allergies Allergy Verified 07/25/23 22:38 Physical Exam Vitals: Vital Signs Temp Pulse Resp BP Pulse Ox 07/26/23 14:30 98.0 F 48 L 17 143/74 96 07/26/23 12:03 98.4 F 43 L 18 154/78 97 07/26/23 11:00 47 L 16 131/71 100 07/26/23 10:00 81 17 139/93 96 07/26/23 09:00 80 18 139/93 96 07/26/23 08:00 48 L 17 139/93 96 12/02/23 07:11 45 L 18 139/93 96 07/26/23 02:31 47 L 19 169/96 95 07/25/23 16:05 98.1 F 39 L 20 159/95 96 Intake and Output 07/25/23 07/26/23 07/26/23 22:59 06:59 14:59 Other: Weight 81.647 kg Results 07/25/23 16:12 07/25/23 16:12 Cardiac Enzymes 07/25/23 07/25/23 07/25/23 Range/Units 16:12 16:12 22:33 AST 98 H (17-59) U/L Troponin I 0.028 0.016 (0.000-0.034) ng/mL 07/25/23 07/26/23 Range/Units 23:20 01:45 AST (17-59) U/L Troponin I 0.019 0.018 (0.000-0.034) ng/mL Coagulation 07/25/23 07/26/23 Range/Units 16:12 09:55 PT 11.2 (10.0-12.5) sec APTT 24.9 49.5 H (22.0-30.0) sec CBC 07/25/23 Range/Units 16:12 WBC 7.1 (3.8-10.6) k/uL RBC 4.30 (4.30-5.90) m/uL Hgb 14.0 (13.0-17.5) gm/dL Hct 40.0 (39.0-53.0) % Plt Count 198 (150-450) k/uL Comprehensive Metabolic Panel 07/25/23 Range/Units 16:12 Sodium 138 (137-145) mmol/L Potassium 4.4 (3.5-5.1) mmol/L Chloride 103 (98-107) mmol/L Carbon Dioxide 24 (22-30) mmol/L BUN 29 H (9-20) mg/dL Creatinine 1.17 (0.66-1.25) mg/dL Glucose 90 (74-99) mg/dL Calcium 9.6 (8.4-10.2) mg/dL AST 98 H (17-59) U/L ALT 96 H (4-49) U/L Alkaline Phosphatase 87 (38-126) U/L Total Protein 7.7 (6.3-8.2) g/dL Albumin 4.6 (3.5-5.0) g/dL Current Medications Generic Name Dose Route Start Last Admin Trade Name Carmel PRN Reason Stop Dose Admin Apixaban 5 mg 07/26/23 21:00 Apixaban 5 Mg Tab PO BID [facility] Protocol Aspirin 81 mg 07/27/23 09:00 Aspirin 81 Mg PO DAILY [facility] Cholecalciferol 50 mcg 07/27/23 09:00 Cholecalciferol 25 Mcg (1000 Iu) Tablet PO DAILY [facility] Cyclobenzaprine HCl 5 mg 07/26/23 09:01 Cyclobenzaprine 5 Mg Tab PO TID PRN Muscle Spasm Levothyroxine Sodium 125 mcg 07/26/23 09:15 07/26/23 09:22 Levothyroxine 125 Mcg Tab PO 125 mcg DAILY@0630 [facility] Administration Losartan Potassium 25 mg 07/27/23 09:00 Losartan 25 Mg Tab PO DAILY [facility] Metoprolol Tartrate 12.5 mg 07/26/23 21:00 Metoprolol Tartrate 25 Mg Tab PO BID [facility] Multivitamins 1 each 07/27/23 09:00 Multivitamins, Thera 1 Each Tab PO DAILY [facility] Nitroglycerin 0.4 mg 07/25/23 23:06 Nitroglycerin Sl Tabs 0.4 Mg Tab SUBLINGUAL Q5M PRN Chest Pain Pantoprazole Sodium 40 mg 07/27/23 07:30 Pantoprazole 40 Mg Tablet PO DAILY@0730 [facility] Zolpidem Tartrate 5 mg 07/26/23 09:01 Zolpidem 5 Mg Tab PO HS PRN Insomnia Intake and Output 07/25/23 07/26/23 07/26/23 22:59 06:59 14:59 Other: Weight 81.647 kg 07/25/23 16:12 07/25/23 16:12
--- NOTE | 2023-07-26 19:33 | CA ---
Transthoracic Echo Report Name: Karime Kam Age: 83 Gender: M : 1940 Exam Date: 07/26/2023 14:31 Exam Location: [facility] Ht (in): 66 Wt (lb): 180 Ordering Physician: Olegario Alves MD ([email or web address]) Attending/Referring Phys: Photo Finisher Edith Layton RDCS Procedure CPT: Indications: chf Cardiac Hx: CABG Technical Quality: Fair Contrast 1: Total Dose (mL): Contrast 2: Total Dose (mL): MEASUREMENTS (Male / Female) Normal Values 2D ECHO LV Diastolic Diameter PLAX 4.4 cm 4.2 - 5.9 / 3.9 - 5.3 cm LV Systolic Diameter PLAX 3.1 cm IVS Diastolic Thickness 1.1 cm 0.6 - 1.0 / 0.6 - 0.9 cm LVPW Diastolic Thickness 1.0 cm 0.6 - 1.0 / 0.6 - 0.9 cm LV Relative Wall Thickness 0.5 RV Internal Dim ED PLAX 4.1 cm LA Systolic Diameter LX 4.5 cm 3.0 - 4.0 / 2.7 - 3.8 cm LV Diastolic Volume MOD BP 130.8 cm??? 67 - 155 / 56 - 104 cm??? LV Systolic Volume MOD BP 54.1 cm??? - / 19 - 49 cm??? LV Ejection Fraction MOD BP 58.6 % >= 55 % LV Cardiac Index MOD BP 2178.5 cm???/min???m??? LV Diastolic Volume MOD 4C 113.1 cm??? LV Systolic Volume MOD 4C 56.3 cm??? LV Ejection Fraction MOD 4C 50.2 % LV Cardiac Index MOD 4C 1613.1 cm???/min???m??? LV Diastolic Length 4C 8.6 cm LV Systolic Length 4C 7.8 cm LV Diastolic Volume MOD 2C 149.8 cm??? LV Systolic Volume MOD 2C 50.9 cm??? LV Ejection Fraction MOD 2C 66.0 % LV Cardiac Index MOD 2C 2805.9 cm???/min???m??? LV Diastolic Length 2C 8.7 cm LV Systolic Length 2C 7.2 cm LA Volume 95.2 cm??? 18 - 58 / 22 - 52 cm??? LA Volume Index 48.3 cm???/m??? 16 - 28 cm???/m??? M-MODE Aortic Root Diameter MM 3.7 cm MV E Point Septal Separation 0.6 cm AV Cusp Separation MM 2.3 cm DOPPLER AV Peak Velocity 159.0 cm/s AV Peak Gradient 10.1 mmHg MV Area PHT 3.0 cm??? Mitral E Point Velocity 105.6 cm/s Mitral A Point Velocity 46.9 cm/s Mitral E to A Ratio 2.3 MV Deceleration Time 253.1 ms MV E' Velocity 7.1 cm/s Mitral E to MV E' Ratio 15.0 TR Peak Velocity 271.6 cm/s TR Peak Gradient 29.5 mmHg Right Ventricular Systolic Press 40.0 mmHg FINDINGS Left Ventricle Left ventricular ejection fraction is estimated at 50-55 %. Left ventricular cavity size normal. Left ventricular wall thickness normal. Right Ventricle mild right ventricular dilatation. Mild pulmonary hypertension. Right Atrium Right atrial dilatation. Left Atrium Mildly increased left atrial diameter. Severely increased left atrial volume. Moderately increased left atrial area. Mitral Valve Structurally normal mitral valve. Mild mitral regurgitation. Aortic Valve Trileaflet aortic valve. Aortic valve sclerosis. No aortic valve stenosis or regurgitation. Tricuspid Valve Structurally normal tricuspid valve. Mild tricuspid regurgitation. Pulmonic Valve Pulmonic valve not well visualized. Pericardium No pericardial effusion. Aorta Normal size aortic root and proximal ascending aorta. CONCLUSIONS Left ventricular ejection fraction is estimated at 50-55 %. Left ventricular cavity size normal. No regional wall motion abnormality Severe LA dilatation Mild MR RVSP at 40 mmHg Mild RA and RV dilatation. Normal RV function. Previewed by: Dr Olegario Alves (Electronically Signed) Final Date: 26 July 2023 19:32
[2023-07-26] MEDS ORDERED: METOPROLOL TARTRATE 25 MG TAB PO SCH (21:00)
[2023-07-26] MEDS: METOPROLOL TARTRATE 12.5 MG TAB PO SCH (21:06)
[2023-07-26] MEDS: APIXABAN 5 MG TAB PO SCH (21:07)
[2023-07-26 23:03] LABS: Chol/HDL Ratio 2.08 Ratio; LDL Cholesterol,Calculated 46.8 mg/dL (0.0-131.0)
[2023-07-27] MEDS: LEVOTHYROXINE 125 MCG TAB PO SCH (06:35)
[2023-07-27] MEDS: PANTOPRAZOLE 40 MG TABLET PO SCH (09:00)
[2023-07-27] MEDS: CHOLECALCIFEROL 25 MCG (1000 IU) TABLET PO SCH (09:00)
[2023-07-27] MEDS: ASPIRIN 81 MG PO SCH (09:01)
[2023-07-27] MEDS: MULTIVITAMINS, THERA 1 EACH TAB PO SCH (09:01)
[2023-07-27] MEDS: APIXABAN 5 MG TAB PO SCH ×2 (09:01→20:42)
[2023-07-27] MEDS: LOSARTAN 25 MG TAB PO SCH (09:02)
--- NOTE | 2023-07-27 10:40 | P.PN ---
Subjective Progress Note Date: 07/27/23 Karime Kam, is an 83-year-old male who presented to [facility] emergency room with a chief complaint of worsening shortness of breath, patient states that his symptoms started 2 weeks prior to presentation, and has been progressing, he was seen in the office prior to coming to emergency room, EKG was done in the office and revealed evidence of atrial fibrillation with slow ventricular response rate 39. He was evaluated in the emergency room vital examination on presentation rev ealed a temperature of 98.1 pulse 39 respiration 20 blood pressure 159/95 pulse ox 96% on room air Laboratory data revealed a white blood count of 7.1 hemoglobin 14.0 platelet count 198 BUN 29 creatinine 1.17 AST 98 ALT 96 alkaline phosphatase 87 troponin 0.028 BNP 4350 Testing in the emergency room revealed chest x-ray revealed small right pleural effusion and evidence of COPD, EKG done in the office prior to presentation to emergency room, revealed atrial fibrillation with slow heart rate of 39 Patient was admitted to medical floor for further evaluation and treatment Past medical history is significant for history of hypertension, history of hyperlipidemia, history of hypothyroidism, history of coronary artery disease with history of coronary artery bypass graft surgery in 2004, history of TIA, history of prostate cancer, history of syncope, history of osteoarthritis was total left knee arthroplasty On review of systems patient is complaining of shortness of breath with activity otherwise he denies any complaints there is no fever or chills no headache or dizziness no chest pain no palpitation no cough no nausea or vomiting no abdominal pain no diarrhea no blood in the stools no burning with urination no frequency or urgency and no hematuria. On 07/27/2023 patient is alert and oriented 3. Current vital signs temp 98.6, heart rate 60, respiratory rate 18, blood pressure 152/82 with a pulse ox 96%. Metroprolol added per cardiology at decreased dose to 12.5 mg PO twice a day. Tentative plans for cardioversion tomorrow 07/28/2023 at this time patient denies chest pain or shortness of breath. Patient denies nausea vomiting or diarrhea. Patient denies any urinary burning or frequency. Objective - Vital Signs Vital signs: Vital Signs Temp 98.6 F 07/27/23 08:57 Pulse 60 07/27/23 08:57 Resp 18 07/27/23 08:57 BP 153/82 07/27/23 08:57 Pulse Ox 96 07/27/23 08:57 FiO2 Intake & Output 07/26/23 07/27/23 07/27/23 18:59 06:59 18:59 Intake Total 181.1 Balance 181.1 Intake: Intake, IV Titration 181.1 Amount Heparin Sod,Pork in 0.45% 181.1 NaCl 25,000 unit In 0.45 % NaCl 1 250ml.bag @ 12 UNITS/KG/HR 9.798 mls/hr IV .Q24H [facility] Rx#: [id number] - Exam In general patient is alert and oriented x 3 in no distress HEENT head normocephalic and atraumatic Neck is supple no JVD no goiter no lymphadenopathy no carotid bruit Chest examination is clear to auscultation no crackles no wheezing Cardiac exam reveals regular heart sounds S1 and S2 no gallops no murmurs Abdomen is soft nontender no organomegaly with normal bowel sounds Extremity exam reveals no edema no cyanosis or clubbing Neurological examination reveals no gross focal deficits - Labs CBC & Chem 7: 07/25/23 16:12 07/25/23 16:12 Labs: Abnormal Lab Results - Last 24 Hours (Table) 07/26/23 07/26/23 Range/Units 09:55 19:45 APTT 49.5 H 43.7 H (22.0-30.0) sec Assessment and Plan Assessment: Atrial fibrillation with slow ventricular response, patient was started on IV h eparin, beta antolin was held Shortness of breath Underlying history of coronary artery disease with history of coronary artery bypass graft surgery in 2004 Elevated liver enzymes AST and ALT, will hold statin at this time and monitor closely Underlying history of hypertension Underlying history of hyperlipidemia Underlying history of hypothyroidism, will check TSH Underlying history of osteoarthritis Previous history of prostate cancer At this time patient will be admitted to telemetry He was started on IV heparin in the emergency room Metoprolol is on hold at this time Cardiology consultation was requested Will follow closely tenative plans for cardioversion on 07/28/2023
--- NOTE | 2023-07-27 11:38 | P.PN ---
Progress Note - Text Progress Note Date: 07/27/23 Progress Note - SOAP Patient Name: Karime Kam Date of : 1940 Patient Status: Inpatient Attending Provider: Fela Herr Date: 07/27/23 10:24 Initialization Date: 07/27/23 10:24 Subjective Progress Note Date: 07/27/23 Karime Kam, is an 83-year-old male who presented to [facility] emergency room with a chief complaint of worsening shortness of breath, patient states that his symptoms started 2 weeks prior to presentation, and has been progressing, he was seen in the office prior to coming to emergency room, EKG was done in the office and revealed evidence of atrial fibrillation with slow ventricular response rate 39. He was evaluated in the emergency room vital examination on presentation revealed a temperature of 98.1 pulse 39 respiration 20 blood pressure 159/95 pulse ox 96% on room air Laboratory data revealed a white blood count of 7.1 hemoglobin 14.0 platelet count 198 BUN 29 creatinine 1.17 AST 98 ALT 96 alkaline phosphatase 87 troponin 0.028 BNP 4350 Testing in the emergency room revealed chest x-ray revealed small right pleural effusion and evidence of COPD, EKG done in the office prior to presentation to emergency room, revealed atrial fibrillation with slow heart rate of 39 Patient was admitted to medical floor for further evaluation and treatment Past medical history is significant for history of hypertension, history of hyperlipidemia, history of hypothyroidism, history of coronary artery disease with history of coronary artery bypass graft surgery in 2004, history of TIA, history of prostate cancer, history of syncope, history of osteoarthritis was total left knee arthroplasty On review of systems patient is complaining of shortness of breath with activity otherwise he denies any complaints there is no fever or chills no headache or dizziness no chest pain no palpitation no cough no nausea or vomiting no abdominal pain no diarrhea no blood in the stools no burning with urination no frequency or urgency and no hematuria. On 07/27/2023 patient is alert and oriented 3. Current vital signs temp 98.6, heart rate 60, respiratory rate 18, blood pressure 152/82 with a pulse ox 96%. Metroprolol added per cardiology at decreased dose to 12.5 mg PO twice a day. Tentative plans for cardioversion tomorrow 07/28/2023 at this time patient denies chest pain or shortness of breath. Patient denies nausea vomiting or diarrhea. Patient denies any urinary burning or frequency. Objective - Vital Signs Vital signs: Vital Signs Temp 98.6 F 07/27/23 08:57 Pulse 60 07/27/23 08:57 Resp 18 07/27/23 08:57 BP 153/82 07/27/23 08:57 Pulse Ox 96 07/27/23 08:57 FiO2 Intake & Output 07/26/23 07/27/23 07/27/23 18:59 06:59 18:59 Intake Total 181.1 Balance 181.1 Intake: Intake, IV Titration 181.1 Amount Heparin Sod,Pork in 0.45% 181.1 NaCl 25,000 unit In 0.45 % NaCl 1 250ml.bag @ 12 UNITS/KG/HR 9.798 mls/hr IV .Q24H [facility] Rx#: [id number] - Exam In general patient is alert and oriented x 3 in no distress HEENT head normocephalic and atraumatic Neck is supple no JVD no goiter no lymphadenopathy no carotid bruit Chest examination is clear to auscultation no crackles no wheezing Cardiac exam reveals regular heart sounds S1 and S2 no gallops no murmurs Abdomen is soft nontender no organomegaly with normal bowel sounds Extremity exam reveals no edema no cyanosis or clubbing Neurological examination reveals no gross focal deficits - Labs CBC & Chem 7: 07/25/23 16:12 07/25/23 16:12 Labs: Abnormal Lab Results - Last 24 Hours (Table) 07/26/23 07/26/23 Range/Units 09:55 19:45 APTT 49.5 H 43.7 H (22.0-30.0) sec Assessment and Plan Assessment: Atrial fibrillation with slow ventricular response, patient was started on IV heparin, beta antolin was held Shortness of breath Underlying history of coronary artery disease with history of coronary artery bypass graft surgery in 2004 Elevated liver enzymes AST and ALT, will hold statin at this time and monitor closely Underlying history of hypertension Underlying history of hyperlipidemia Underlying history of hypothyroidism, will check TSH Underlying history of osteoarthritis Previous history of prostate cancer At this time patient will be admitted to telemetry He was started on IV heparin in the emergency room Metoprolol is on hold at this time Cardiology consultation was requested Will follow closely tenative plans for cardioversion on 07/28/2023
[2023-07-27] MEDS: METOPROLOL TARTRATE 12.5 MG TAB PO SCH ×2 (11:41→20:43)
[2023-07-27 14:20] LABS: Basophils % (A) 1 %; Eosinophils # (A) 0.1 k/uL (0-0.7); Eosinophils % (A) 2 %; HCT 38.5 % (39.0-53.0); HGB 13.3 gm/dL (13.0-17.5); Lymphocytes # (A) 1.4 k/uL (1.0-4.8); Lymphocytes % (A) 21 %; MCH 32.7 pg (25.0-35.0); MCHC 34.6 g/dL (31.0-37.0); MCV 94.5 fL (80.0-100.0); Mean Platelet Volume 7.4; Monocytes # (A) 0.6 k/uL (0-1.0); Monocytes % (A) 8 %; Neutrophils # (A) 4.5 k/uL (1.3-7.7); Neutrophils % (A) 65 %; Platelet Count 204 k/uL (150-450); RBC 4.08 m/uL (4.30-5.90)
[2023-07-27 14:32] LABS: Potassium 4.2 mmol/L (3.5-5.1)
[2023-07-27 14:33] LABS: ALT 53 U/L (4-49); AST 35 U/L (17-59); African American GFR (CKD) 79 (>60 ml/min/1.73 sqM); Albumin 4.1 g/dL (3.5-5.0); Alkaline Phosphatase 71 U/L (38-126); Anion Gap 12 mmol/L; Blood Urea Nitrogen 17 mg/dL (9-20); Calcium 9.4 mg/dL (8.4-10.2); Carbon Dioxide 21 mmol/L (22-30); Chloride 103 mmol/L (98-107); Glucose 115 mg/dL (74-99); Non-African American GFR(CKD) 68 (>60 ml/min/1.73 sqM); Sodium 136 mmol/L (137-145); Total Bilirubin 0.8 mg/dL (0.2-1.3); Total Protein 6.9 g/dL (6.3-8.2)
--- NOTE | 2023-07-27 19:48 | P.PN ---
Subjective Progress Note Date: 07/27/23 Progress note: Patient continues to be in atrial flutter. He is asymptomatic from cardiac vessel standpoint. His echo cardiac exam showed preserved EF HISTORY OF PRESENTING ILLNESS 83-year-old known to Dr. Montalvo presented to the hospital because of 2 weeks of worsening shortness of breath. On admission his ECG showed atrial flutter with a heart rate of 39. At the time of my evaluation patient's heart rate is in 70s with underlying atrial flutter. Patient reports prior history of CAD status post CABG in 2004. He has not had any heart cath since. On admission blood pressure 150 oh 4/78, heart rate 60s to 70s, hemoglobin 14, WBC 7, BUN 29, creatinine 1.17, troponin 4 are negative, BNP 4000. TSH is normal. Chest x-ray does not show any signs of pulmonary congestion REVIEW OF SYSTEMS 14 point review of system is negative except what is mentioned above in HPI. PHYSICAL EXAMINATION Vital signs reviewed. Head: Normocephalic. Eyes: Sclerae nonicteric. Neck: Brisk carotid upstroke, no jugular venous distention. Lungs: Clear to auscultation. Heart: Irregularly irregular, S1-S2, no S3, no murmur or rub. Abdomen: Soft nontender, positive bowel sounds no organomegaly. Extremities: No edema, intact distal pulses. Neuro: Alert, oritented, no focal deficits ASSESSMENT New-onset atrial flutter. [id number] score 4, age, HTN, CAD Slow ventricular response, average heart rate around 60s Essential hypertension Shortness of breath and fatigue due to atrial flutter PLAN Start low-dose metoprolol 12.5 mg twice a day. If Heart rate <50s, discontinue. Discontinue IV heparin drip Start Eliquis 5 mg twice a day Plan for JAYNE cardioversion on Friday. I believe patient's heart rate would improve after getting cardioverted. Patient is having a great related AV co nduction fatigue which is causing his heart rate go down. get echocardiogram Objective - Vital Signs Vital signs: Vital Signs Temp 97.9 F 07/27/23 14:40 Pulse 62 07/27/23 14:40 Resp 16 07/27/23 14:40 BP 137/81 07/27/23 14:06 Pulse Ox 97 07/27/23 14:40 FiO2 Intake & Output 07/27/23 07/27/23 07/28/23 06:59 18:59 06:59 Intake Total 181.1 120 Balance 181.1 120 Weight 81.647 kg Intake: Intake, IV Titration 181.1 Amount Heparin Sod,Pork in 0.45% 181.1 NaCl 25,000 unit In 0.45 % NaCl 1 250ml.bag @ 12 UNITS/KG/HR 9.798 mls/hr IV .Q24H [facility] Rx#: [id number] Oral 120 - Labs CBC & Chem 7: 07/27/23 13:22 07/27/23 13:22 Labs: Abnormal Lab Results - Last 24 Hours (Table) 07/26/23 07/27/23 07/27/23 Range/Units 19:45 13:22 13:22 RBC 4.08 L (4.30-5.90) m/uL Hct 38.5 L (39.0-53.0) % APTT 43.7 H (22.0-30.0) sec Sodium 136 L (137-145) mmol/L Carbon Dioxide 21 L (22-30) mmol/L Glucose 115 H (74-99) mg/dL ALT 53 H (4-49) U/L
[2023-07-28] MEDS: PANTOPRAZOLE 40 MG TABLET PO SCH (06:05)
[2023-07-28] MEDS: LEVOTHYROXINE 125 MCG TAB PO SCH (06:05)
[2023-07-28] MEDS: METOPROLOL TARTRATE 12.5 MG TAB PO SCH ×2 (08:46→22:11)
[2023-07-28] MEDS ORDERED: LACTATED RINGERS 1,000 ML IV ONE ×2 (10:05)
[2023-07-28] MEDS ORDERED: PROPOFOL 10 MG/ML 20 ML VIAL IV ONE (10:22)
--- NOTE | 2023-07-28 10:45 | P.PCN ---
Date of Procedure: 07/28/23 Operative Findings: Cardioversion Report Performing physician Aren Montalvo M.D. Procedure performed Successful cardioversion of atrial fibrillation/flutter to normal sinus mechanism using 200 J at first attempt Indication Symptomatic atrial fibrillation/flutter Complication None Level of sedation The procedure was performed under deep sedation using propofol with [employer] in the room Procedure description After obtaining an informed consent the patient was brought to the recovery room. Sedation was introduced using propofol with [employer] in the room. Subsequently the patient cardioverted from atrial fibrillation to normal sinus mechanism using 200 J and first attempt Conclusion Successful cardioversion of atrial fibrillation to normal sinus mechanism using 200 J Postprocedure management Continue the current medical regimen Continue oral anticoagulation Follow-up with the patient
--- NOTE | 2023-07-28 10:47 | P.PCN ---
Date of Procedure: 07/28/23 Operative Findings: TRANSESOPHAGEAL ECHOCARDIOGRAM WARP DOFFER: VIKTOR CASTRO MD, RPVI INDICATION: Rule out intracardiac thrombus before cardioversion SEDATION: Conscious sedation COMPLICATION: None LEVEL OF SEDATION The procedure was performed using propofol with MANAGER LONG TERM CARE and an anesthesiologist in the room PROCEDURE DESCRIPTION: After obtaining an informed consent, the patient was brought to the recovery room. Pulse oximetry and heart monitors were attached to the patient. The patient throat was sprayed using lidocaine. The patient was turned into left lateral position. After that a bite guard was placed. After an appropriate sedation was initiated, the transesophageal echocardiogram was advanced through a bite guard into the mid esophagus. A 2-D echocardiogram images, color Doppler images, continuous wave images, pulse-wave images, of various cardiac structure were performed. After that the transesophageal echocardiogram probe was advanced into the stomach and fixed to obtain transgastric view was. The probe was brought into the mid esophagus. Inter-atrial septum was interrogated using 2D images, color Doppler images, and then contrast study. After that transesophageal echocardiogram was withdrawn out and upon withdrawing the descending thoracic aorta all the way up to the arch was evaluated. CONCLUSION: 1. No evidence of intracardiac thrombus. Intact left atrial appendage 2. Severe left atrial dilation atrial enlargement 3. Normal of the systolic function 4. Trileaflet aortic valve with no stenosis or regurgitation 5. Mild mitral regurgitation 6. No evidence of pericardial effusion
[2023-07-28] MEDS: MULTIVITAMINS, THERA 1 EACH TAB PO SCH (11:37)
[2023-07-28] MEDS: APIXABAN 5 MG TAB PO SCH ×2 (11:37→22:11)
[2023-07-28] MEDS: LOSARTAN 25 MG TAB PO SCH (11:37)
[2023-07-28] MEDS: ASPIRIN 81 MG PO SCH (11:37)
[2023-07-28] MEDS: CHOLECALCIFEROL 25 MCG (1000 IU) TABLET PO SCH (11:38)
--- NOTE | 2023-07-28 17:27 | P.PN ---
Subjective Progress Note Date: 07/28/23 Karime Kam, is an 83-year-old male who presented to [facility] emergency room with a chief complaint of worsening shortness of breath, patient states that his symptoms started 2 weeks prior to presentation, and has been progressing, he was seen in the office prior to coming to emergency room, EKG was done in the office and revealed evidence of atrial fibrillation with slow ventricular response rate 39. He was evaluated in the emergency room vital examination on presentation rev ealed a temperature of 98.1 pulse 39 respiration 20 blood pressure 159/95 pulse ox 96% on room air Laboratory data revealed a white blood count of 7.1 hemoglobin 14.0 platelet count 198 BUN 29 creatinine 1.17 AST 98 ALT 96 alkaline phosphatase 87 troponin 0.028 BNP 4350 Testing in the emergency room revealed chest x-ray revealed small right pleural effusion and evidence of COPD, EKG done in the office prior to presentation to emergency room, revealed atrial fibrillation with slow heart rate of 39 Patient was admitted to medical floor for further evaluation and treatment Past medical history is significant for history of hypertension, history of hyperlipidemia, history of hypothyroidism, history of coronary artery disease with history of coronary artery bypass graft surgery in 2004, history of TIA, history of prostate cancer, history of syncope, history of osteoarthritis was total left knee arthroplasty On review of systems patient is complaining of shortness of breath with activity otherwise he denies any complaints there is no fever or chills no headache or dizziness no chest pain no palpitation no cough no nausea or vomiting no abdominal pain no diarrhea no blood in the stools no burning with urination no frequency or urgency and no hematuria. On 07/27/2023 patient is alert and oriented 3. Current vital signs temp 98.6, heart rate 60, respiratory rate 18, blood pressure 152/82 with a pulse ox 96%. Metroprolol added per cardiology at decreased dose to 12.5 mg PO twice a day. Tentative plans for cardioversion tomorrow 07/28/2023 at this time patient denies chest pain or shortness of breath. Patient denies nausea vomiting or diarrhea. Patient denies any urinary burning or frequency. On 07/28/2023 patient was seen and examined on the telemetry floor he is alert a nd oriented 3 in no apparent distress he underwent JAYNE and cardioversion this morning patient is doing well in normal sinus rhythm at this time he denies any complaints there is no fever or chills no headache or dizziness no chest pain no shortness of breath no cough no nausea or vomiting no abdominal pain no diarrhea and no urinary symptoms. Objective - Vital Signs Vital signs: Vital Signs Temp 98.2 F 07/28/23 08:00 Pulse 60 07/28/23 10:51 Resp 16 07/28/23 10:51 BP 146/78 07/28/23 10:51 Pulse Ox 94 L 07/28/23 10:51 FiO2 Intake & Output 07/27/23 07/28/23 07/28/23 18:59 06:59 18:59 Intake Total 120 100 Output Total 300 Balance 120 -300 100 Weight 81.647 kg 76 kg Intake: IV 100 Oral 120 Output: Urine 300 Other: Voiding Method Toilet Toilet # Voids 2 - Exam In general patient is alert and oriented x 3 in no distress HEENT head normocephalic and atraumatic Neck is supple no JVD no goiter no lymphadenopathy no carotid bruit Chest examination is clear to auscultation no crackles no wheezing Cardiac exam reveals regular heart sounds S1 and S2 no gallops no murmurs Abdomen is soft nontender no organomegaly with normal bowel sounds Extremity exam reveals no edema no cyanosis or clubbing Neurological examination reveals no gross focal deficits - Labs CBC & Chem 7: 07/27/23 13:22 07/27/23 13:22 Labs: Abnormal Lab Results - Last 24 Hours (Table) 07/27/23 07/27/23 Range/Units 13:22 13:22 RBC 4.08 L (4.30-5.90) m/uL Hct 38.5 L (39.0-53.0) % Sodium 136 L (137-145) mmol/L Carbon Dioxide 21 L (22-30) mmol/L Glucose 115 H (74-99) mg/dL ALT 53 H (4-49) U/L Assessment and Plan Plan: Atrial fibrillation with slow ventricular response, patient was started on IV heparin, beta antolin was held Shortness of breath Underlying history of coronary artery disease with history of coronary artery bypass graft surgery in 2004 Elevated liver enzymes AST and ALT, will hold statin at this time and monitor closely Underlying history of hypertension Underlying history of hyperlipidemia Underlying history of hypothyroidism, will check TSH Underlying history of osteoarthritis Previous history of prostate cancer At this time patient will be admitted to telemetry He was started on IV heparin in the emergency room Metoprolol is on hold at this time Cardiology consultation was requested Will follow closely
[2023-07-29] MEDS: LEVOTHYROXINE 125 MCG TAB PO SCH (06:40)
[2023-07-29] MEDS: PANTOPRAZOLE 40 MG TABLET PO SCH (06:40)
[2023-07-29] MEDS: APIXABAN 5 MG TAB PO SCH (08:30)
[2023-07-29] MEDS: MULTIVITAMINS, THERA 1 EACH TAB PO SCH (08:30)
[2023-07-29] MEDS: LOSARTAN 25 MG TAB PO SCH (08:30)
[2023-07-29] MEDS: CHOLECALCIFEROL 25 MCG (1000 IU) TABLET PO SCH (08:30)
[2023-07-29] MEDS: ASPIRIN 81 MG PO SCH (08:30)
--- NOTE | 2023-07-29 10:09 | P.DS ---
Providers Date of admission: 07/25/23 23:09 Expected date of discharge: 07/29/23 Attending physician: Fela Herr Consults: 07/25/23 23:06 Consult Physician Routine Consulting Provider: Olegario Alves Consult Reason/Comments: New-onset atrial fibrillation Do you want consulting provider notified?: Yes Primary care physician: Fela Herr [facility] Course: Discharge diagnosis Atrial fibrillation with slow ventricular response, patient was started on IV heparin, beta antolin was held Shortness of breath Underlying history of coronary artery disease with history of coronary artery bypass graft surgery in 2004 Elevated liver enzymes AST and ALT, will hold statin at this time and monitor closely Underlying history of hypertension Underlying history of hyperlipidemia Underlying history of hypothyroidism, will check TSH Underlying history of osteoarthritis Previous history of prostate cancer Hospital course Karime Kam, is an 83-year-old male who presented to [facility] emergency room with a chief complaint of worsening shortness of breath, patient states that his symptoms started 2 weeks prior to presentation, and has been progressing, he was seen in the office prior to coming to emergency room, EKG was done in the office and revealed evidence of atrial fibrillation with slow ventricular response rate 39. He was evaluated in the emergency room vital examination on presentation revealed a temperature of 98.1 pulse 39 respiration 20 blood pressure 159/95 pulse ox 96% on room air Laboratory data revealed a white blood count of 7.1 hemoglobin 14.0 platelet count 198 BUN 29 creatinine 1.17 AST 98 ALT 96 alkaline phosphatase 87 troponin 0.028 BNP 4350 Testing in the emergency room revealed chest x-ray revealed small right pleural effusion and evidence of COPD, EKG done in the office prior to presentation to emergency room, revealed atrial fibrillation with slow heart rate of 39 Patient was admitted to medical floor for further evaluation and treatment Past medical history is significant for history of hypertension, history of hyperlipidemia, history of hypothyroidism, history of coronary artery disease with history of coronary artery bypass graft surgery in 2004, history of TIA, history of prostate cancer, history of syncope, history of osteoarthritis was total left knee arthroplasty On review of systems patient is complaining of shortness of breath with activity otherwise he denies any complaints there is no fever or chills no headache or dizziness no chest pain no palpitation no cough no nausea or vomiting no abdominal pain no diarrhea no blood in the stools no burning with urination no frequency or urgency and no hematuria. On 07/27/2023 patient is alert and oriented 3. Current vital signs temp 98.6, heart rate 60, respiratory rate 18, blood pressure 152/82 with a pulse ox 96%. Metroprolol added per cardiology at decreased dose to 12.5 mg PO twice a day. Tentative plans for cardioversion tomorrow 07/28/2023 at this time patient denies chest pain or shortness of breath. Patient denies nausea vomiting or diarrhea. Patient denies any urinary burning or frequency. On 07/28/2023 patient was seen and examined on the telemetry floor he is alert and oriented 3 in no apparent distress he underwent JAYNE and cardioversion this morning patient is doing well in normal sinus rhythm at this time he denies any complaints there is no fever or chills no headache or dizziness no chest pain no shortness of breath no cough no nausea or vomiting no abdominal pain no diarrhea and no urinary symptoms. on 07/29/2023 patient is alert and oriented 3. Patient did have episode of second-degree block happening throughout the night current heart rates 75. D iscussed case with cardiology services Metroprolol DC'd patient to ambulate with discharge this afternoon. Patient will be discharged on eliquis for anticoagulation will follow up with cardiology services for further management. At this time patient denies chest pain or shortness of breath. Patient denies nausea vomiting or diarrhea. Patient denies any urinary burning or frequency Patient Condition at Discharge: Stable Plan - Discharge Summary Discharge Rx Participant: No New Discharge Prescriptions: New Apixaban [Eliquis] 5 mg PO BID 30 Days #60 tab Continue Levothyroxine Sodium [Synthroid] 125 mcg PO DAILY Losartan [Cozaar] 25 mg PO DAILY Cholecalciferol [Vitamin D3 (25 Mcg = 1000 Iu)] 50 mcg PO DAILY Aspirin [Adult Low Dose Aspirin EC] 81 mg PO DAILY Rosuvastatin Calcium [Crestor] 40 mg PO DAILY Cyclobenzaprine [Flexeril] 5 mg PO TID PRN PRN Reason: Muscle Spasm Multivitamins, Thera [Multivitamin (formulary)] 1 tab PO DAILY Zolpidem Tartrate [Ambien] 5 mg PO HS PRN PRN Reason: Insomnia Esomeprazole Magnesium [NexIUM 24Hr] 20 mg PO DAILY Discontinued Metoprolol Succinate [Toprol XL] 50 mg PO DAILY Discharge Medication List Levothyroxine Sodium [Synthroid] 125 mcg PO DAILY 07/11/14 [History] Losartan [Cozaar] 25 mg PO DAILY 01/08/16 [History] Cholecalciferol [Vitamin D3 (25 Mcg = 1000 Iu)] 50 mcg PO DAILY 07/10/16 [History] Aspirin [Adult Low Dose Aspirin EC] 81 mg PO DAILY 08/20/16 [History] Multivitamins, Thera [Multivitamin (formulary)] 1 tab PO DAILY 11/08/21 [History] Rosuvastatin Calcium [Crestor] 40 mg PO DAILY 11/08/21 [History] Cyclobenzaprine [Flexeril] 5 mg PO TID PRN 07/25/23 [History] Esomeprazole Magnesium [NexIUM 24Hr] 20 mg PO DAILY 07/25/23 [History] Zolpidem Tartrate [Ambien] 5 mg PO HS PRN 07/25/23 [History] Apixaban [Eliquis] 5 mg PO BID 30 Days #60 tab 07/29/23 [Rx] Follow up Appointment(s)/Referral(s): Fela Herr MD [Primary Care Provider] - 1-2 days Aren Montalvo MD [STAFF PHYSICIAN] - 1 Week Activity/Diet/Wound Care/Special Instructions: Activity as tolerated Diet heart healthy Discharge Disposition: HOME SELF-CARE
[2023-07-29 10:17] LABS: Basophils % (A) 0 %; Eosinophils # (A) 0.2 k/uL (0-0.7); Eosinophils % (A) 2 %; HCT 37.3 % (39.0-53.0); HGB 12.7 gm/dL (13.0-17.5); Lymphocytes # (A) 1.2 k/uL (1.0-4.8); Lymphocytes % (A) 19 %; MCH 32.2 pg (25.0-35.0); MCHC 34.2 g/dL (31.0-37.0); MCV 94.1 fL (80.0-100.0); Mean Platelet Volume 7.2; Monocytes # (A) 0.6 k/uL (0-1.0); Monocytes % (A) 9 %; Neutrophils # (A) 4.3 k/uL (1.3-7.7); Neutrophils % (A) 67 %; Platelet Count 199 k/uL (150-450); RBC 3.96 m/uL (4.30-5.90); RDW 13.1 % (11.5-15.5); WBC 6.4 k/uL (3.8-10.6)
[2023-07-29 10:39] VITALS: RESP 18; TEMP 97.9
[2023-07-29 10:44] LABS: ALT 39 U/L (4-49); AST 32 U/L (17-59); African American GFR (CKD) 79 (>60 ml/min/1.73 sqM); Alkaline Phosphatase 69 U/L (38-126); Anion Gap 13 mmol/L; Blood Urea Nitrogen 12 mg/dL (9-20); Calcium 9.3 mg/dL (8.4-10.2); Carbon Dioxide 21 mmol/L (22-30); Chloride 101 mmol/L (98-107); Glucose 111 mg/dL (74-99); Non-African American GFR(CKD) 68 (>60 ml/min/1.73 sqM); Potassium 4.2 mmol/L (3.5-5.1); Sodium 135 mmol/L (137-145); Total Bilirubin 0.8 mg/dL (0.2-1.3); Total Protein 6.9 g/dL (6.3-8.2)
--- NOTE | 2023-07-29 12:42 | P.PN ---
Subjective Progress Note Date: 07/29/23 HISTORY OF PRESENTING ILLNESS 83-year-old known to Dr. Montalvo presented to the hospital because of 2 weeks of worsening shortness of breath. On admission his ECG showed atrial flutter with a heart rate of 39. At the time of my evaluation patient's heart rate is in 70s with underlying atrial flutter. Patient reports prior history of CAD status post CABG in 2004. He has not had any heart cath since. On admission blood pressure 150 oh /, heart rate 60s to 70s, hemoglobin 14, WBC 7, BUN 29, creatinine 1.17, troponin 4 are negative, BNP 4000. TSH is normal. Chest x-ray does not show any signs of pulmonary congestion Progress Note Date: 07/27/23 Progress note: Patient continues to be in atrial flutter. He is asymptomatic from cardiac vessel standpoint. His echo cardiac exam showed preserved EF / Yesterday, patient underwent cardioversion and this morning remains in a sinus rhythm. Patient states that he had an episode last night where his blood pressure went high and he felt cold and a little short of breath. He denies any dizziness or lightheadedness. Breathing is the same not better or worse. Patient has a sinus rhythm with a first-degree block and metoprolol will be discontinued. Patient encouraged to get up and ambulate today and we can monitor heart rate for response. PHYSICAL EXAMINATION Vital signs reviewed. Head: Normocephalic. Eyes: Sclerae nonicteric. Neck: Brisk carotid upstroke, no jugular venous distention. Lungs: Clear to auscultation. Heart: Irregularly irregular, S1-S2, no S3, no murmur or rub. Abdomen: Soft nontender, positive bowel sounds no organomegaly. Extremities: No edema, intact distal pulses. Neuro: Alert, oritented, no focal deficits ASSESSMENT New-onset atrial flutter status post cardioversion. [id number] score 4, age, HTN, CAD Slow ventricular response, average heart rate around 60s Essential hypertension Shortness of breath and fatigue due to atrial flutter PLAN Discontinue metoprolol Continue Eliquis 5 mg twice a day Patient to ambulate in the hallway and monitor heart rate response to activity. If no worsening of symptoms, patient is cleared for discharge and will follow up with Dr. Montalvo in one week Nurse practitioner note has been reviewed, I agree with the documented findings and plan of care. Patient was seen and examined. Objective - Vital Signs Vital signs: Vital Signs Temp 97.9 F 07/29/23 08:00 Pulse 72 07/29/23 08:00 Resp 18 07/29/23 08:00 BP 174/73 07/29/23 08:00 Pulse Ox 95 07/29/23 08:00 FiO2 Intake & Output 07/28/23 07/29/23 07/29/23 18:59 06:59 18:59 Intake Total 940 480 Output Total 300 Balance 940 -300 480 Intake: IV 100 Oral 840 480 Output: Urine 300 Other: Voiding Method Toilet Toilet Toilet - Labs CBC & Chem 7: 07/29/23 09:39 07/29/23 09:39 Labs: Abnormal Lab Results - Last 24 Hours (Table) 07/29/23 07/29/23 Range/Units 09:39 09:39 RBC 3.96 L (4.30-5.90) m/uL Hgb 12.7 L (13.0-17.5) gm/dL Hct 37.3 L (39.0-53.0) % Sodium 135 L (137-145) mmol/L Carbon Dioxide 21 L (22-30) mmol/L Glucose 111 H (74-99) mg/dL
[2023-07-29 14:15] VITALS: BP 159/83; PULSE 74
--- NOTE | 2023-07-29 16:20 | CDI ---
Documentation Clarification Form Date: 07/29/2023 04:02:21 PM From: Telma Andrade RN, CCDS Admit Date: 07/25/2023 11:09:00 PM Patient Name: Karime Kam Visit Number: [id number] Discharge Date: ATTENTION: The Clinical Documentation Specialists (CDI) and [facility] Coding Staff appreciate your assistance in clarifying documentation. Please respond to the clarification below the line at the bottom and electronically sign. The CDI & [facility] Coding staff will review the response and follow-up if needed. Please note: Queries are made part of the Legal Health Record. If you have any questions, please contact the author of this message via ITS. Dr. Fela Herr Conflicting documentation has been found in the medical record. As attending physician, please provide clarification. H/P and subsequent progress notes has atrial fibrillation with slow ventricular response. 07/26 Cardiology consult and subsequent progress notes has new-onset atrial flutter [id number] score 4, age, HTN, CAD Slow ventricular response, average heart rate around 60s History/Risk Factors: Cancer, CVA/TIA, Hyperlipidemia, Myocardial Infarction ([place]), Prostate Disorder, Syncope, Thyroid Disorder Clinical Indicators: 83-year-old male present with 2 weeks of worsening shortness of breath. On admission his ECG showed atrial flutter with a heart rate of 39 per cardiology evaluation. Labs: troponin 0.028 BNP 4350 07/25 chest x-ray revealed small right pleural effusion and evidence of COPD, 07/26 Echocardiogram: Left ventricular ejection fraction estimated at 50-55% Treatment: senior training and development rep/Telemetry Heparin IV drip per orders dc Eliquis 5 MG PO Daily 07/26-07/29 07/28 Cardioversion Please clarify which diagnosis is most appropriate: [ x ] New Onset Atrial Flutter [ x ] Atrial fibrillation with slow ventricular response (specify type if known) [ ] Other (please specify) [ ] Unable to determine (Template Last Revised: October 2020) MTDD
--- NOTE | 2023-07-31 12:34 | CDI ---
Documentation Clarification Form Date: 07/31/2023 12:15:53 PM From: Atiya Murphy RN, CCDS Email: [email or web address] Admit Date: 07/25/2023 11:09:00 PM Patient Name: Karime Kam Visit Number: [id number] Discharge Date: 07/29/2023 04:27:00 PM ATTENTION: The Clinical Documentation Specialists (CDI) and [facility] Coding Staff appreciate your assistance in clarifying documentation. Please respond to the clarification below the line at the bottom and electronically sign. The CDI & [facility] Coding staff will review the response and follow-up if needed. Please note: Queries are made part of the Legal Health Record. If you have any questions, please contact the author of this message via ITS. Dr. Fela Herr Your patient had new onset atrial fibrillation with slow ventricular response. Based on this information and the findings below, is there an additional diagnosis that is clinically appropriate for this patient? Patient history/risk factors: Cancer, CVA/TI, HLD, [place], CAD with CABG in 2004 and HTN. Presented with worsening SOB. EKG in office revealed atrial fibrillation with slow heart rate of 39. Admitted with atrial fibrillation with slow ventricular response. Clinical Indicators: 07/25-07/26 EKG: Atrial flutter with SVR Cardiology: "New-onset atrial flutter. Slow ventricular response, average heart rate around 60s." Discharge summary: "Atrial fibrillation with slow ventricular response, patient was started on IV heparin, beta antolin was held." Treatment: s/p cardioversion on 07/28 from atrial fibrillation to normal sinus mechanism; IV Heparin 07/26; Cozaar 25mg po daily 07/27-07/29; Lopressor 12.5mg on 07/28 - held on 07/26-07/28 due to decreased HR Please clarify the cause of the new onset atrial fibrillation/flutter if known: [ ] Sick sinus syndrome [ ] Unknown cause [ xxx ] Unable to determine [ ] Other, please specify MTDD
== END 2023-07-29 16:27 | disposition home or self-care (01) | DRG 310 ==
LOC: EC 15:38 → 3SCARD 23:09
PROVIDERS: ADMIT Internal Medicine; ATTEND Internal Medicine
PROC: B24BZZ4 Ultrasonography of Heart with Aorta, Transesophageal (ICD-10-PCS; principal; 2023-07-28 07:30)
PROC: 5A2204Z Restoration of Cardiac Rhythm, Single (ICD-10-PCS; principal; 2023-07-28 07:30)
DX: I48.92 Unspecified atrial flutter (principal); I48.91 Unspecified atrial fibrillation; E03.9 Hypothyroidism, unspecified; E78.5 Hyperlipidemia, unspecified; J44.9 Chronic obstructive pulmonary disease, unspecified; I25.10 Atherosclerotic heart disease of native coronary artery without angina pectoris; I10 Essential (primary) hypertension; I25.2 Old myocardial infarction; F41.9 Anxiety disorder, unspecified; R74.8 Abnormal levels of other serum enzymes; M19.90 Unspecified osteoarthritis, unspecified site; Z79.82 Long term (current) use of aspirin; Z79.890 Hormone replacement therapy; Z79.899 Other long term (current) drug therapy; Z95.1 Presence of aortocoronary bypass graft; Z95.5 Presence of coronary angioplasty implant and graft; Z85.46 Personal history of malignant neoplasm of prostate; Z86.73 Personal history of transient ischemic attack (TIA), and cerebral infarction without residual deficits; Z96.652 Presence of left artificial knee joint
CPT/HCPCS: 36415; 71046; 80053; 80061; 83880; 84443; 84484; 85025; 85610; 85730; 92960; 93005; 93306; 93312; 93320; 93325; 96365; 96366; 99285

== ENCOUNTER → 2023-09-01 | Outpatient (CLI) | payer MEDICARE ==
--- NOTE | 2023-09-01 14:17 | P.PAINPG ---
PQRS Measure Charge Sheet Comment: HISTORY OF PRESENT ILLNESS: A 83 yr old male as a referral from Dr Young presents today w severe and chronic neck pain x 1 yr secondary to C3-C5 fusion and post laminectomy syndrome for evaluation. Pt states pain level is provoked at 8 /10 in intensity, constant, localized in the cervical spine, predominantly axial, sore in character w occasional shooting pain towards the BL shoulder blades. Pain is provoked by hyperextension and rotation. Pain is alleviated by PT integrated w massage x 4 wks in May 2023, alternating heat & ice, medications (Flexeril, Tyl, Advil), repositioning and rest. Cervical disability score at 24. PMH: OA, Prostate CA, CVA, Hyperlipidemia, ID (2004), Hypothyroid Disorder, Anxiety PSH: Cardiac Ablation (Jul 2023), CABG x4 (2004), Cardiac Catheterization w Stent (2022), L Total Knee Replacement, BL Knee Arthroscopy, BL Cataract Resection SH: Never smoker, Occasional ETOH use, No illicit drug use FH: Mo- CA. Daughter- Melanoma All: See list Meds: See list REVIEW OF ORGAN SYSTEMS: CONSTITUTIONAL: No fevers or chills. No recent weight loss. NEUROLOGICAL: + numbness and tingling along the distal extremities. No seizure disorders or headaches. MUSCULOSKELETAL: + pain PSYCHIATRIC: Denies current depression or suicidal thoughts. Physical Examinations : Constitutional : Cooperative , not in acute distress . Neurologic : Cranial nerve II to XII intact. No focal neurological deficits. Psychiatric : alert & oriented x 3. Matching mood & appropriate affect. Judgment & insight intact. Musculoskeletal : Cervical Spine Motor strength in the deltoid and biceps: Normal right side. Normal Left side Motor strength biceps and the wrist extensors: Normal right side . Normal left side Motor strength in the triceps muscle: Normal right side. Normal left side Deep tendon reflexes: Normal at the biceps. Normal at Brachioradialis. Normal at triceps Vertebral body tenderness to deep palpation over Cervical facet loading test: positive bilaterally over C5-C6, C6-C7 Spurling test: positive bilaterally Neck distraction test: positive bilaterally Janette sign: positive bilaterally Lumbar spine Motor strength lower extremities ,thigh and legs 5/5 Right side , 5/5 Left side Deep tendon reflexes : Normal Knee Jerk. Normal Ankle Jerk Vertebral body tenderness over Coley Test positive Lumbar facet Loading Test: positive Right / positive Left Range of motion of the lumbar spine Flexion 30 degrees, extension 10 degrees Straight Leg Raise test: Left/ Right positive at degrees Queta test: positive right / positive left. Severe tenderness over the Sacroiliac joint on the Right / Left sides Gaenslen test: positive bilaterally Seated flexion test: positive bilaterally. Sacral spine : Severe tenderness over the Sacroiliac joint: right side / left side Range of motion: Flexion of the lumbar spine <60 degrees Range of motion: Extension of the lumba r spine <20 degrees Gaenslen's Test positive Queta test: positive right side / left side Thigh Thrust Test Sacral Thrust Test Imaging: MRI noncontrast of the cervical spine from 02/18/23 reviewed Assessment/ Plan : Cervical post laminectomy syndrome, C3-C5 auto-fusion Pt would like information on cervical facet blocks and may RTC on an as needed basis. Discussed may need a series of injections, up until RFA, for optimal pain relief. Risks, benefits of procedure discussed and patient verbalized understanding. Admits to anti- coagulant use or medical history of diabetes. Protocol for discontinuation/ continuation of medications justina procedure discussed. Minimal anesthesia provided, if clinically indicated, consisting of Versed and Fentanyl. All questions answered. I have spent greater than 30 minutes on patient care today. Dr Perry was available by phone for the evaluation of this patient. The time was used to review the medical records including relevant urine studies and Prescription history (MAPs), review of the available imaging, evaluation and examination of the patient, coordination of care with the medical staff and if applicable referring physicians, as well as creation of the medical record PQRS Narrative: Smoking Status Former smoker Home Medications: Ambulatory Orders Levothyroxine Sodium [Synthroid] 125 mcg PO DAILY 07/11/14 Losartan [Cozaar] 25 mg PO DAILY 01/08/16 Cholecalciferol [Vitamin D3 (25 Mcg = 1000 Iu)] 50 mcg PO DAILY 07/10/16 Aspirin [Adult Low Dose Aspirin EC] 81 mg PO DAILY 08/20/16 Multivitamins, Thera [Multivitamin (formulary)] 1 tab PO DAILY 11/08/21 Rosuvastatin Calcium [Crestor] 40 mg PO DAILY 11/08/21 Cyclobenzaprine [Flexeril] 5 mg PO TID PRN 07/25/23 Esomeprazole Magnesium [NexIUM 24Hr] 20 mg PO DAILY 07/25/23 Zolpidem Tartrate [Ambien] 5 mg PO HS PRN 07/25/23 Apixaban [Eliquis] 5 mg PO BID 30 Days #60 tab 07/29/23 Controlled Substance Measures - Controlled Substance Measures Is patient prescribed a controlled substance at discharge?: No
[2023-09-01 14:22] VITALS: BP 142/76; PULSE 99; RESP 16; TEMP 98.6
== END ==
LOC: PNWHC3 13:40
PROVIDERS: ATTEND Specialist
DX: M47.812 Spondylosis without myelopathy or radiculopathy, cervical region (principal); M96.1 Postlaminectomy syndrome, not elsewhere classified; M43.22 Fusion of spine, cervical region; M19.90 Unspecified osteoarthritis, unspecified site; E78.5 Hyperlipidemia, unspecified; I25.2 Old myocardial infarction; E07.9 Disorder of thyroid, unspecified; F41.9 Anxiety disorder, unspecified; Z79.01 Long term (current) use of anticoagulants; Z86.73 Personal history of transient ischemic attack (TIA), and cerebral infarction without residual deficits; Z85.46 Personal history of malignant neoplasm of prostate; Z87.891 Personal history of nicotine dependence; Z79.82 Long term (current) use of aspirin; Z79.890 Hormone replacement therapy
CPT/HCPCS: 99211

== ENCOUNTER → 2023-11-24 | Outpatient (CLI) | payer MEDICARE ==
--- NOTE | 2023-11-24 14:45 | P.PAINPG ---
Objective - Vital Signs Vital signs: Intake & Output 11/23/23 11/24/23 11/24/23 18:59 06:59 18:59 Weight 81.647 kg PQRS Measure Charge Sheet Comment: HISTORY OF PRESENT ILLNESS: A 83 yr old male presents today w severe and chronic neck pain x 1 yr secondary to DDD, spondylosis and facet arthropathy without myelopathy for evaluation. Pt states pain level is provoked at 8 /10 in intensity, constant, localized in the cervical spine, predominantly axial, sore in character w occasional shooting pain towards the BL shoulder blades. Pain is provoked by hyperextension and rotation. Pain is alleviated by PT integrated w massage x 4 wks in May 2023, alternating heat & ice, medications, repositioning and rest. Cervical disability score at 24. Interventional procedures include BL MBB C5-C7 x1 Medications include Flexeril, Advil, Tyl REVIEW OF ORGAN SYSTEMS: CONSTITUTIONAL: No fevers or chills. No recent weight loss. NEUROLOGICAL: + numbness and tingling along the distal extremities. No seizure disorders or headaches. MUSCULOSKELETAL: + pain PSYCHIATRIC: Denies current depression or suicidal thoughts. Physical Examinations : Constitutional : Cooperative , not in acute distress . Neurologic : Cranial nerve II to XII intact. No focal neurological deficits. Psychiatric : alert & oriented x 3. Matching mood & appropriate affect. Judgment & insight intact. Musculoskeletal : Cervical Spine Motor strength in the deltoid and biceps: Normal right side. Normal Left side Motor strength biceps and the wrist extensors: Normal right side . Normal left side Motor strength in the triceps muscle: Normal right side. Normal left side Deep tendon reflexes: Normal at the biceps. Normal at Brachioradialis. Normal at triceps Vertebral body tenderness to deep palpation over Cervical facet loading test: positive bilaterally Taut bands w twitch response over BL C2- T2 Spurling test: positive bilaterally Neck distraction test: positive bilaterally Janette sign: positive bilaterally Lumbar spine Motor strength lower extremities ,thigh and legs 5/5 Right side , 5/5 Left side Deep tendon reflexes : Normal Knee Jerk. Normal Ankle Jerk Vertebral body tenderness over Coley Test positive Lumbar facet Loading Test: positive Ri ght / positive Left Range of motion of the lumbar spine Flexion 30 degrees, extension 10 degrees Straight Leg Raise test: Left/ Right positive at degrees Queta test: positive right / positive left. Severe tenderness over the Sacroiliac joint on the Right / Left sides Silverio test: positive bilaterally Seated flexion test: positive bilaterally. Sacral spine : Severe tenderness over the Sacroiliac joint: right side / left side Range of motion: Flexion of the lumbar spine <60 degrees Range of motion: Extension of the lumbar spine <20 degrees Gaenslen's Test positive Queta test: positive right side / left side Thigh Thrust Test Sacral Thrust Test Imaging: MRI noncontrast of the cervical spine from 02/18/23 reviewed Assessment/ Plan : Cervical DDD Recommendation of BL TPIs C2-T2 #1. May need a series of injections for optimal pain relief. Risks, benefits of procedure discussed and patient verbalized understanding. Admits to anti- coagulant use or medical history of diabetes. Protocol for discontinuation/ continuation of medications justina procedure discussed. Will contact Dr Montalvo about stopping Eliquis for 3 days for future procedures. All questions answered. I have spent greater than 20 minutes on patient care today. Dr Perry was available by phone for the evaluation of this patient. The time was used to review the medical records including relevant urine studies and Prescription history (MAPs), review of the available imaging, evaluation and examination of the patient, coordination of care with the medical staff and if applicable referring physicians, as well as creation of the medical record PQRS Narrative: Smoking Status Former smoker Hx Alcohol Use (MH) No Home Medications: Ambulatory Orders Levothyroxine Sodium [Synthroid] 125 mcg PO DAILY 07/11/14 Losartan [Cozaar] 25 mg PO DAILY 01/08/16 Cholecalciferol [Vitamin D3 (25 Mcg = 1000 Iu)] 50 mcg PO DAILY 07/10/16 Aspirin [Adult Low Dose Aspirin EC] 81 mg PO DAILY 08/20/16 Multivitamins, Thera [Multivitamin (formulary)] 1 tab PO DAILY 11/08/21 Rosuvastatin Calcium [Crestor] 40 mg PO DAILY 11/08/21 Cyclobenzaprine [Flexeril] 5 mg PO TID PRN 07/25/23 Esomeprazole Magnesium [NexIUM 24Hr] 20 mg PO DAILY 07/25/23 Zolpidem Tartrate [Ambien] 5 mg PO HS PRN 07/25/23 Apixaban [Eliquis] 5 mg PO BID 30 Days #60 tab 07/29/23 Controlled Substance Measures - Controlled Substance Measures Is patient prescribed a controlled substance at discharge?: No
[2023-11-24 14:59] VITALS: BP 130/68; PULSE 81; RESP 15; TEMP 98.5
== END ==
LOC: PNWHC3 13:31
PROVIDERS: ATTEND Specialist
DX: M50.30 Other cervical disc degeneration, unspecified cervical region (principal); Z87.891 Personal history of nicotine dependence
CPT/HCPCS: 99211

== ENCOUNTER 2023-12-18 23:06 | Emergency (ER) | payer MEDICARE ==
[2023-12-18 23:22] VITALS: BP 165/94; PULSE 98; RESP 18; TEMP 98.1
--- NOTE | 2023-12-18 23:46 | ED ---
SOB HPI - General Chief Complaint: Shortness of Breath Stated Complaint: BELEN Time Seen by Provider: 12/18/23 23:09 Source: patient, EMS Mode of arrival: EMS Limitations: no limitations - History of Present Illness Initial Comments: Quick note: 83-year-old male presenting with chief complaint of cough and shortness of breath. Symptoms started today. No chest pain. States that his daughter was recently sick with similar symptoms. 83-year-old male presenting with chief complaint of cough. Patient describes this as a "deep chest cough". Has been ongoing for almost 2 days. He is having no chest pain. He admits to a bit of shortness of breath. No lower extremity swelling. No fevers or chills. No nausea, vomiting, abdominal pain. No dizziness or weakness. States that his daughter was recently sick with similar symptoms. - Related Data Home Medications Medication Instructions Recorded Confirmed Levothyroxine Sodium [Synthroid] 125 mcg PO DAILY 07/11/14 07/25/23 Losartan [Cozaar] 25 mg PO DAILY 01/08/16 07/25/23 Cholecalciferol [Vitamin D3 (25 50 mcg PO DAILY 07/10/16 07/25/23 Mcg = 1000 Iu)] Aspirin [Adult Low Dose Aspirin EC] 81 mg PO DAILY 08/20/16 07/25/23 Multivitamins, Thera [Multivitamin 1 tab PO DAILY 11/08/21 07/25/23 (formulary)] Rosuvastatin Calcium [Crestor] 40 mg PO DAILY 11/08/21 07/25/23 Cyclobenzaprine [Flexeril] 5 mg PO TID PRN 07/25/23 07/25/23 Esomeprazole Magnesium [NexIUM 20 mg PO DAILY 07/25/23 07/25/23 24Hr] Zolpidem Tartrate [Ambien] 5 mg PO HS PRN 07/25/23 07/25/23 Previous Rx's Medication Instructions Recorded Apixaban [Eliquis] 5 mg PO BID 30 Days #60 tab 07/29/23 Molnupiravir [Lagevrio (Eua)] 800 mg PO Q12HR 5 Days #40 cap 12/19/23 Allergies Allergy/AdvReac Type Severity Reaction Status Date / Time No Known Allergies Allergy Verified 12/18/23 23:11 Review of Systems ROS Statement: Those systems with pertinent positive or pertinent negative responses have been documented in the HPI. ROS Other: All systems not noted in ROS Statement are negative. Past Medical History Past Medical History: Atrial Flutter, Cancer, CVA/TIA, Hyperlipidemia, Myoc ardial Infarction (OR), Prostate Disorder, Syncope, Thyroid Disorder Additional Past Medical History / Comment(s): PROSTATE CANCER, TIA/SYNCOPY, STATES NO RESIDUAL EFFECTS FROM TIA Last Myocardial Infarction Date:: 2004 History of Any Multi-Drug Resistant Organisms: None Reported Past Surgical History: Coronary Bypass/CABG, Heart Catheterization With Stent, Prostate Surgery Additional Past Surgical History / Comment(s): TOTAL LEFT/RT KNEE, RIGHT and left KNEE ARTHROSCOPIC, LEFT and right CATARACT, QUAD BYPASS 2004, prostate removed Past Anesthesia/Blood Transfusion Reactions: Previous Problems w/ Anesthesia Additional Past Anesthesia/Blood Transfusion Reaction / Comment(s): TROUBLE EATING AND DIARRHEA POST SURGICAL 06/2016, STATES WEIGHT LOSS Date of Last Stent Placement:: 2004 Past Psychological History: Anxiety Smoking Status: Former smoker Past Alcohol Use History: None Reported Past Drug Use History: None Reported - Past Family History Daughter(s) Family Medical History: Cancer Additional Family Medical History / Comment(s): Melanoma. Mother Family Medical History: Cancer General Exam - General Exam Comments Initial Comments: Visual Physical Exam Vital signs reviewed General: Well-appearing, nontoxic, no acute distress. Head: Normocephalic, atraumatic Eyes: PERRLA, EOMI ENT: Airway patent Chest: Nonlabored breathing Skin: No visual rash, normal skin tone Neuro: Alert and oriented 3 Musculoskeletal: No gross abnormalities Limitations: no limitations General appearance: alert, in no apparent distress Head exam: Present: atraumatic, normocephalic Eye exam: Present: normal appearance, EOMI Neck exam: Present: normal inspection. Absent: meningismus Respiratory exam: Present: normal lung sounds bilaterally. Absent: respiratory distress, wheezes, rales, rhonchi, stridor Cardiovascular Exam: Present: regular rate, normal rhythm, normal heart sounds. Absent: systolic murmur, diastolic murmur, rubs, gallop, clicks Neurological exam: Present: alert, oriented X3 Psychiatric exam: Present: normal affect, normal mood Skin exam: Present: warm, dry Course Vital Signs 12/18/23 23:09 Temperature 98.1 F Pulse Rate 98 Respiratory 18 Rate Blood Pressure 165/94 O2 Sat by Pulse 97 Oximetry Medical Decision Making - Medical Decision Making Was pt. sent in by a medical professional or institution (DEVANG Valdez, VIDEO SPECIALIST, urgent care, hospital, or usp...) When possible be specific @ -No Did you speak to anyone other than the patient for history (EMS, parent, family, police, friend...)? What history was obtained from this source @ -No Did you review nursing and triage notes (agree or disagree)? Why? @ -I reviewed and agree with nursing and triage notes Were old charts reviewed (outside hosp., previous admission, EMS record, old EKG, old radiological studies, urgent care reports/EKG's, usp records)? Report findings @ -No old charts were reviewed Differential Diagnosis (chest pain, altered mental status, abdominal pain women, abdominal pain men, vaginal bleeding, weakness, fever, dyspnea, syncope, hea dache, dizziness, GI bleed, back pain, seizure, CVA, palpatations, mental health, musculoskeletal)? @ -MDM Differential Dyspnea: Coronary syndrome, arrhythmia, tamponade, asthma, COPD, pulmonary embolism, pneumonia, pneumothorax, pulmonary effusion, anaphylaxis, diabetic ketoacidosis, flailed chest, pulmonary contusion, diaphragmatic rupture, anemia, neuromuscular this is not meant to be an all-inclusive list. EKG interpreted by me (3pts min.). @ -EKG shows ventricular rate 89. QRS 92. QT 385. QTc 432. X-rays interpreted by me (1pt min.). @ -Chest x-ray shows no acute findings in the chest CT interpreted by me (1pt min.). @ -None done U/S interpreted by me (1pt. min.). @ -None done What testing was considered but not performed or refused? (CT, X-rays, U/S, labs)? Why? @ -None What meds were considered but not given or refused? Why? @ -None Did you discuss the management of the patient with other professionals (professionals i.e. DEVANG Valdez, VIDEO SPECIALIST, lab, RT, psych nurse, marriage and family social worker, associate loan officer, teacher, workplace rehabilitation officer, medical case worker)? Give summary @ -No Was smoking cessation discussed for >3mins.? @ -No Was critical care preformed (if so, how long)? @ -No Were there social determinants of health that impacted care today? How? (Homelessness, low income, unemployed, alcoholism, drug addiction, transportation, low edu. Level, literacy, decrease access to med. care, nursing home, rehab)? @ -No Was there de-escalation of care discussed even if they declined (Discuss DNR or withdrawal of care, Hospice)? DNR status @ -No What co-morbidities impacted this encounter? (DM, HTN, Smoking, COPD, CAD, Cancer, CVA, ARF, Chemo, Hep., AIDS, mental health diagnosis, sleep apnea, morbid obesity)? @ -None Was patient admitted / discharged? Hospital course, mention meds given and route, prescriptions, significant lab abnormalities, going to OR and other pertinent info. @ -83-year-old male presenting with chief complaint of cough and shortness of breath. Patient was initially evaluated by myself as a quick note from the waiting room. Workup was initiated. Lab work shows no leukocytosis or anemia. He is positive for COVID. Negative troponin and BNP is 177. Chest x-ray shows no acute findings. Patient is later reassessed by myself and he shows no acute signs of distress. He is educated on today's findings. He is started on molnupiravir. Discharged home. Follow-up with PCP. Report back to ER with any new or worsening symptoms. Discussed return parameters and answered all questions. Patient conveyed verbal understanding and agreed to the plan. I discussed this case in detail with my attending Dr. Hall Undiagnosed new problem with uncertain prognosis? @ -No Drug Therapy requiring intensive monitoring for toxicity (Heparin, Nitro, Insulin, Cardizem)? @ -No Were any procedures done? @ -No Diagnosis/symptom? @ -COVID Acute, or Chronic, or Acute on Chronic? @ -Acute Uncomplicated (without systemic symptoms) or Complicated (systemic symptoms)? @ -Uncomplicated Side effects of treatment? @ -No Exacerbation, Progression, or Severe Exacerbation? @ -No Poses a threat to life or bodily function? How? (Chest pain, USA, OR, pneumonia, PE, COPD, DKA, ARF, appy, cholecystitis, CVA, Diverticulitis, Homicidal, Suicidal, threat to staff... and all critical care pts) @ -Low likelihood at this time - Lab Data Result diagrams: 12/18/23 23:14 12/18/23 23:14 Lab Results 12/18/23 12/18/23 12/18/23 Range/Units 23:14 23:14 23:14 WBC 6.2 (3.8-10.6) k/uL RBC 4.56 (4.30-5.90) m/uL Hgb 14.1 (13.0-17.5) gm/dL Hct 42.5 (39.0-53.0) % MCV 93.3 (80.0-100.0) fL MCH 30.9 (25.0-35.0) pg MCHC 33.1 (31.0-37.0) g/dL RDW 12.8 (11.5-15.5) % Plt Count 112 L D (150-450) k/uL MPV 7.6 Neutrophils % 83 % Lymphocytes % 6 % Monocytes % 7 % Eosinophils % 3 % Basophils % 0 % Neutrophils # 5.2 (1.3-7.7) k/uL Lymphocytes # 0.4 L (1.0-4.8) k/uL Monocytes # 0.4 (0-1.0) k/uL Eosinophils # 0.2 (0-0.7) k/uL Basophils # 0.0 (0-0.2) k/uL PT 10.8 (10.0-12.5) sec INR 1.0 (<1.2) APTT 20.6 L (22.0-30.0) sec Sodium 134 L (137-145) mmol/L Potassium 4.2 (3.5-5.1) mmol/L Chloride 104 (98-107) mmol/L Carbon Dioxide 21 L (22-30) mmol/L Anion Gap 9 mmol/L BUN 21 H (9-20) mg/dL Creatinine 0.96 (0.66-1.25) mg/dL Est GFR (CKD-EPI)AfAm 86 (>60 ml/min/1.73 sqM) Est GFR (CKD-EPI)NonAf 74 (>60 ml/min/1.73 sqM) Glucose 99 (74-99) mg/dL Plasma Lactic Acid Giles (0.7-2.0) mmol/L Calcium 9.6 (8.4-10.2) mg/dL Magnesium 1.9 (1.6-2.3) mg/dL Total Bilirubin 0.9 (0.2-1.3) mg/dL AST 31 (17-59) U/L ALT 21 (4-49) U/L Alkaline Phosphatase 67 (38-126) U/L Troponin I (0.000-0.034) ng/mL NT-Pro-B Natriuret Pep 177 pg/mL Total Protein 7.8 (6.3-8.2) g/dL Albumin 4.7 (3.5-5.0) g/dL Influenza Type A (PCR) (Not Detectd) Influenza Type B (PCR) (Not Detectd) RSV (PCR) (Not Detectd) SARS-CoV-2 (PCR) (Not Detectd) 12/18/23 12/18/23 12/18/23 Range/Units 23:14 23:14 23:14 WBC (3.8-10.6) k/uL RBC (4.30-5.90) m/uL Hgb (13.0-17.5) gm/dL Hct (39.0-53.0) % MCV (80.0-100.0) fL MCH (25.0-35.0) pg MCHC (31.0-37.0) g/dL RDW (11.5-15.5) % Plt Count (150-450) k/uL MPV Neutrophils % % Lymphocytes % % Monocytes % % Eosinophils % % Basophils % % Neutrophils # (1.3-7.7) k/uL Lymphocytes # (1.0-4.8) k/uL Monocytes # (0-1.0) k/uL Eosinophils # (0-0.7) k/uL Basophils # (0-0.2) k/uL PT (10.0-12.5) sec INR (<1.2) APTT (22.0-30.0) sec Sodium (137-145) mmol/L Potassium (3.5-5.1) mmol/L Chloride (98-107) mmol/L Carbon Dioxide (22-30) mmol/L Anion Gap mmol/L BUN (9-20) mg/dL Creatinine (0.66-1.25) mg/dL Est GFR (CKD-EPI)AfAm (>60 ml/min/1.73 sqM) Est GFR (CKD-EPI)NonAf (>60 ml/min/1.73 sqM) Glucose (74-99) mg/dL Plasma Lactic Acid Giles 1.8 (0.7-2.0) mmol/L Calcium (8.4-10.2) mg/dL Magnesium (1.6-2.3) mg/dL Total Bilirubin (0.2-1.3) mg/dL AST (17-59) U/L ALT (4-49) U/L Alkaline Phosphatase (38-126) U/L Troponin I <0.012 (0.000-0.034) ng/mL NT-Pro-B Natriuret Pep pg/mL Total Protein (6.3-8.2) g/dL Albumin (3.5-5.0) g/dL Influenza Type A (PCR) Not Detected (Not Detectd) Influenza Type B (PCR) Not Detected (Not Detectd) RSV (PCR) Not Detected (Not Detectd) SARS-CoV-2 (PCR) Detected A (Not Detectd) Disposition Clinical Impression: COVID-19 Disposition: HOME SELF-CARE Condition: Fair Instructions (If sedation given, give patient instructions): COVID-19 (Coronavirus Disease 2019) (ED) Additional Instructions: Follow-up with your PCP. Report back to ER with any new or worsening symptoms. Take medication as prescribed. Prescriptions: Molnupiravir [Lagevrio (Eua)] 800 mg PO Q12HR 5 Days #40 cap Is patient prescribed a controlled substance at d/c from ED?: No Referrals: Fela Herr MD [Primary Care Provider] - 1-2 days Time of Disposition: 02:13
[2023-12-18 23:49] LABS: Basophils % (A) 0 %; Eosinophils # (A) 0.2 k/uL (0-0.7); Eosinophils % (A) 3 %; HCT 42.5 % (39.0-53.0); HGB 14.1 gm/dL (13.0-17.5); Lymphocytes # (A) 0.4 k/uL (1.0-4.8); Lymphocytes % (A) 6 %; MCH 30.9 pg (25.0-35.0); MCHC 33.1 g/dL (31.0-37.0); MCV 93.3 fL (80.0-100.0); Mean Platelet Volume 7.6; Monocytes # (A) 0.4 k/uL (0-1.0); Monocytes % (A) 7 %; Neutrophils # (A) 5.2 k/uL (1.3-7.7); Neutrophils % (A) 83 %; RBC 4.56 m/uL (4.30-5.90); RDW 12.8 % (11.5-15.5); WBC 6.2 k/uL (3.8-10.6)
[2023-12-18 23:59] LABS: ALT 21 U/L (4-49); AST 31 U/L (17-59); African American GFR (CKD) 86 (>60 ml/min/1.73 sqM); Albumin 4.7 g/dL (3.5-5.0); Alkaline Phosphatase 67 U/L (38-126); Anion Gap 9 mmol/L; Blood Urea Nitrogen 21 mg/dL (9-20); Calcium 9.6 mg/dL (8.4-10.2); Carbon Dioxide 21 mmol/L (22-30); Chloride 104 mmol/L (98-107); Glucose 99 mg/dL (74-99); Magnesium 1.9 mg/dL (1.6-2.3); Non-African American GFR(CKD) 74 (>60 ml/min/1.73 sqM); Potassium 4.2 mmol/L (3.5-5.1); Sodium 134 mmol/L (137-145); Total Bilirubin 0.9 mg/dL (0.2-1.3); Total Protein 7.8 g/dL (6.3-8.2)
[2023-12-19 00:05] LABS: Prothrombin Time 10.8 sec (10.0-12.5)
[2023-12-19 00:06] LABS: NT-Pro-B-Type Natriuretic Pept 177 pg/mL
[2023-12-19 00:33] LABS: Platelet Count 112 k/uL (150-450)
[2023-12-19 01:10] LABS: Partial Thromboplastin Time 20.6 sec (22.0-30.0)
--- NOTE | 2023-12-19 01:22 | XR ---
EXAM: XR Chest, 2 Views CLINICAL HISTORY: ITS.REASON XR Reason: difficulty breathing TECHNIQUE: Frontal and lateral views of the chest. COMPARISON: No relevant prior studies available. FINDINGS: Lungs: Unremarkable. No consolidation. Pleural space: Unremarkable. No pneumothorax. Heart: Unremarkable. No cardiomegaly. Mediastinum: Unremarkable. Normal mediastinal contour. Bones/joints: Sternotomy wires. No acute fracture. IMPRESSION: No acute findings in the chest.
== END 2023-12-19 02:28 | disposition home or self-care (01) ==
LOC: EC 23:06
DX: U07.1 COVID-19 (principal); Z87.891 Personal history of nicotine dependence
CPT/HCPCS: 36415; 71046; 80053; 83605; 83735; 83880; 84484; 85025; 85610; 85730; 87636; 93005; 99285

== ENCOUNTER → 2024-04-01 | Day surgery (SDC) | payer MEDICARE | LOC: ORPAIN 10:44 | PROVIDERS: ATTEND Anesthesiology | DX: M47.812 Spondylosis without myelopathy or radiculopathy, cervical region (principal) ==

== ENCOUNTER 2024-04-08 07:15 | Day surgery (SDC) | payer MEDICARE ==
[2024-04-08] MEDS ORDERED: ROPIVACAINE 5MG/ML 20ML VIAL ONE (07:16)
[2024-04-08] MEDS ORDERED: methylPREDNISolone ACETATE 40 MG/ML 1 ML VIAL ONE (07:16)
== END 2024-04-08 07:52 ==
LOC: ORPAIN 07:15
PROVIDERS: ATTEND Pain Medicine Interventional Pain Medicine
DX: M79.18 Myalgia, other site (principal); Z79.82 Long term (current) use of aspirin; Z79.01 Long term (current) use of anticoagulants
CPT/HCPCS: 20553

== ENCOUNTER 2024-06-22 09:46 | Day surgery (SDC) | payer MEDICARE ==
[2024-06-22 10:10] VITALS: BP 161/77; PULSE 73; RESP 16; TEMP 97.7
[2024-06-22] MEDS: SODIUM CHLORIDE 0.9% 1,000 ML IV SCH (10:11)
[2024-06-22] MEDS: IV FLUID CONTINUATION 500 ML IV ONE (11:20)
[2024-06-22] MEDS: LIDOCAINE 1% INJ 10MG/ML (20 ML MDV) SQ ONE (11:50)
--- NOTE | 2024-06-22 15:30 | P.EPPROC ---
- EP Procedure Note Electrophysiology Procedure Note: Loop monitor implant Primary physicians: [employer] Marketing Analyst: Dr. Montalvo Indication: Sinus pauses and nocturnal AV block. First-degree AV block of 300 ms on baseline Patient was brought to the EP lab in a fasting state. Written informed consent was obtained prior to the procedure. The left pectoral area was prepped and draped per protocol. Intravenous antibiotic was administered preoperatively. A subcutaneous Loop monitor was implanted successfully and the wound was closed per protocol. The device was programmed to detect significant lissy- arrhythmic and tachy-arrhythmic events, per protocol. Device and programming details: Bradycardia and syncope protocol
== END 2024-06-22 12:29 | disposition home or self-care (01) ==
LOC: CATHEP 09:46
PROVIDERS: ATTEND Internal Medicine Clinical Cardiac Electrophysiology
DX: I44.0 Atrioventricular block, first degree (principal); R00.1 Bradycardia, unspecified; I25.10 Atherosclerotic heart disease of native coronary artery without angina pectoris; I49.8 Other specified cardiac arrhythmias; E78.5 Hyperlipidemia, unspecified; I10 Essential (primary) hypertension; I25.2 Old myocardial infarction; F17.210 Nicotine dependence, cigarettes, uncomplicated; Z95.1 Presence of aortocoronary bypass graft; Z82.49 Family history of ischemic heart disease and other diseases of the circulatory system; Z79.82 Long term (current) use of aspirin; Z79.899 Other long term (current) drug therapy; Z79.890 Hormone replacement therapy; Z79.01 Long term (current) use of anticoagulants
CPT/HCPCS: 33285; C1764; J2003

== ENCOUNTER 2024-11-30 09:18 | Day surgery (SDC) | payer MEDICARE ==
[2024-11-30 09:50] VITALS: TEMP 97.9
[2024-11-30] MEDS: LACTATED RINGERS 1,000 ML IV SCH (09:55)
[2024-11-30] MEDS ORDERED: PROPOFOL 10 MG/ML 20 ML VIAL IV ONE (10:18)
[2024-11-30 10:34] VITALS: PULSE 80
[2024-11-30 10:48] VITALS: BP 128/79; RESP 16
--- NOTE | 2024-11-30 12:26 | P.PCN ---
Date of Procedure: 11/30/24 Procedure(s) Performed: PREOPERATIVE DIAGNOSIS: Blood in stool, change in bowel habits POSTOPERATIVE DIAGNOSIS: Small ascending colon polyp, diverticulosis PROCEDURE: Colonoscopy with snare polypectomy ANESTHESIA: MAC SURGEON: Magen Dennis M.D. SPECIMENS: Polyp ENDOSCOPIC PROCEDURE: The patient was placed on the endoscopy table in the left decubitus position. The Olympus colonoscope was inserted into the anus and passed under direct visualization to the base of the cecum. The appendiceal orifice was visualized. From that point the scope was slowly withdrawn inspecting all surfaces carefully. There were no neoplastic inflammatory or polypoid lesions throughout the cecum. In the ascending colon a small polyp was seen and removed using the snare with cautery technique. The remainder of the ascending transverse descending sigmoid and rectum appeared normal. The patient had mild scattered diverticulosis throughout the colon. Digital rectal examination was normal. The patient was taken to the recovery room in stable condition per anesthesia guidelines. RECOMMENDATIONS: Resume diet. Await biopsy results. Will contact patient with pathology findings. No immediate plans for repeat colonoscopy
== END 2024-11-30 11:05 | disposition home or self-care (01) ==
LOC: ORWHC2ENDO 09:18
PROVIDERS: ATTEND Surgery
DX: D12.2 Benign neoplasm of ascending colon (principal); K57.30 Diverticulosis of large intestine without perforation or abscess without bleeding; R19.5 Other fecal abnormalities
CPT/HCPCS: 45385; J2704; 88305

== ENCOUNTER → 2025-01-01 | Outpatient (CLI) | payer MEDICARE ==
[2025-01-01 15:07] LABS: HCT 40.8 % (39.6-50.0); HGB 14.1 g/dL (13.0-17.0); MCH 31.2 pg (27.0-32.0); MCHC 34.6 g/dL (32.0-37.0); MCV 90.3 FL (80.0-97.0); Mean Platelet Volume 9.5 FL (9.5-12.2); NRBC Per 100 WBC 0 X 10*3/uL (0.00-0.01); Platelet Count 212 X 10*3/uL (140-440); RBC 4.52 X 10*6/uL (4.40-5.60); WBC 7.52 X 10*3/uL (4.50-10.00)
[2025-01-01 15:11] LABS: Blood Urea Nitrogen 17.2 mg/dL (9.0-27.0); Carbon Dioxide 20.2 mmol/L (21.6-31.8); Chloride 102 mmol/L (96-109); Potassium 4.6 mmol/L (3.5-5.5); Sodium 135 mmol/L (135-145)
== END | disposition home or self-care (01) ==
LOC: LABPAT 08:01
PROVIDERS: ATTEND Internal Medicine Interventional Cardiology
DX: Z01.812 Encounter for preprocedural laboratory examination (principal); I25.10 Atherosclerotic heart disease of native coronary artery without angina pectoris; I48.0 Paroxysmal atrial fibrillation
CPT/HCPCS: 80051; 82565; 84520; 85027